=== PATIENT | male | born 1950 | race Caucasian/White ===

== ENCOUNTER 2016-12-28 07:28 | Day surgery (SDC) | payer MEDICARE, BC ==
[~2016-12-28 07:28] MED LIST: Midazolam 1 MG/ML 2 ML SDV ONE; fentaNYL 100 MCG/2 ML SDV ONE
[2016-12-28] MEDS ORDERED: fentaNYL 100 MCG/2 ML SDV IV ONE ×3 (07:29→08:17)
[2016-12-28] MEDS ORDERED: Midazolam 1 MG/ML 2 ML SDV IV ONE ×2 (07:29→08:18)
[2016-12-28] MEDS ORDERED: Lactated Ringers 1,000 ML IV SCH (08:00)
--- NOTE | 2016-12-28 09:35 | OR ---
DATE: 12/28/2016 PREOPERATIVE DIAGNOSIS: Screening colonoscopy. POSTOPERATIVE DIAGNOSIS: Screening colonoscopy. PROCEDURES: Total colonoscopy with snare excision of polyps x4. ANESTHESIA: Conscious sedation with IV Versed and fentanyl. SPECIMEN: Polyp x4. OPERATIVE FINDINGS: This patient has fairly moderate sigmoid diverticulosis and had 4 polyps, one in the cecum, two in the sigmoid, and one in the rectum, these were all taken off by snare. INDICATION FOR PROCEDURE: This 66-year-old male, has not had a prior colonoscopy. PROCEDURE IN DETAIL: After adequate preparation, a colonoscope was inserted into the rectum. This was easily passed all the way to the cecum. Confirmation of the cecum was made by visualization of the ileocecal valve on palpation in the right lower quadrant. The bowel prep was very good. On withdrawal of the scope, there was a small polyp noted right on the ileocecal valve, a snare was encircled around this, clipped off, and retrieved. On withdrawal of the scope in the sigmoid area, there was a polyp in the midsigmoid area and one in the lower, these measured about 4 mm in diameter and were pedunculated, a snare was placed around these and both were clipped off and retrieved. In the rectum, there was a small sessile polyp in the mid rectum, this was also extracted. Other than the polyps in the sigmoid diverticulosis the colonoscopy was normal. RECOMMENDATION: Followup colonoscopy 5 years for polyp screening. [facility] /[id number]
== END 2016-12-28 10:17 | disposition home or self-care (01) ==
LOC: DL.ENDO 07:28
PROVIDERS: ATTEND Surgery
DX: Z12.11 Encounter for screening for malignant neoplasm of colon (principal); D12.0 Benign neoplasm of cecum; D12.5 Benign neoplasm of sigmoid colon; D12.8 Benign neoplasm of rectum; K57.30 Diverticulosis of large intestine without perforation or abscess without bleeding; I82.409 Acute embolism and thrombosis of unspecified deep veins of unspecified lower extremity; Z79.01 Long term (current) use of anticoagulants; Z83.79 Family history of other diseases of the digestive system
CPT/HCPCS: 45385; J2250; J7120; 88305; J3010

== ENCOUNTER 2017-07-31 09:16 | Day surgery (SDC) | payer MEDICARE, BC ==
[2017-07-31] MEDS ORDERED: Midazolam 1 MG/ML 2 ML SDV IV ONE (09:17)
[2017-07-31] MEDS ORDERED: Sodium Chloride 0.9% 10 ML Syringe IV ONE (09:17)
[2017-07-31] MEDS ORDERED: Dexamethasone 4 MG/ML SDV IV ONE (09:17)
[2017-07-31] MEDS ORDERED: Acetaminophen 325 MG Tab PO PRN (09:30)
[2017-07-31] MEDS ORDERED: Phenylephrine 10% Ophth Soln 5 ML Bot EYELF PRN (09:30)
[2017-07-31] MEDS ORDERED: Povidone-Iodine 5% Sterile Ophth Soln 30 ML Bottle EYELF ONE ×2 (09:30→10:21)
[2017-07-31] MEDS ORDERED: Timolol Maleate 0.5% Ophth Soln 5 ML Bottle EYELF ONE (09:30)
[2017-07-31] MEDS ORDERED: Proparacaine 0.5% Ophth Soln 15 ML Bottle EYELF ONE (09:30)
[2017-07-31] MEDS ORDERED: Moxifloxacin 0.5% Ophth Soln 3 ML Bottle EYELF ONE (09:30)
[2017-07-31] MEDS ORDERED: Ondansetron 4 MG/2 ML SDV IVPUSH PRN (09:30)
[2017-07-31] MEDS ORDERED: Cataract Ophth Solution EYELF ONE (09:30)
[2017-07-31] MEDS ORDERED: Phenylephrine 10% Ophth Soln 5 ML Bot EYELF ONE (09:30)
[2017-07-31] MEDS ORDERED: Sodium Chloride 0.9% 10 ML Syringe FLUSH PRN (09:30)
[2017-07-31] MEDS ORDERED: Tetracaine HCl/PF 0.5% 4 ML Bottle EYELF ONE (10:20)
[2017-07-31] MEDS ORDERED: Lidocaine 1% 30 ML SDV INJECT ONE (10:24)
[2017-07-31] MEDS ORDERED: Vancomycin 500 MG SDV EYELF ONE (10:27)
[2017-07-31] MEDS ORDERED: Balanced Salt Solution Ophth Irrig 500 ML Bottle IOCULAR ONE (10:29)
[2017-07-31] MEDS ORDERED: Chondroitin Sulfate/Hyaluronate Sodium Ophth Inj 0.75 ML Syringe EYELF ONE (10:32)
[2017-07-31] MEDS ORDERED: Apraclonidine 0.5% Ophth Soln 5 ML Bot EYELF ONE (10:35)
[2017-07-31] MEDS ORDERED: Dexamethasone/Neomycin/Polymyxin B Ophth Oint 3.5 GM Tube EYELF ONE (10:36)
--- NOTE | 2017-07-31 10:53 | OR ---
DATE: 07/31/2017 PREOPERATIVE DIAGNOSIS: Visually significant mixed cataract, left eye. POSTOPERATIVE DIAGNOSIS: Visually significant mixed cataract, left eye. PROCEDURE: Extracapsular cataract extraction with intraocular lens implant, left eye. ANESTHESIA: Topical/local MAC. COMPLICATIONS: None. INDICATION: Mr. Bajwa was seen in the clinic with complaints of blurred vision. Clinical examination revealed visually significant cataract. Cataract is mixed, both nuclear and cortical. He is unhappy with his vision. I explained options; I offered cataract surgery; and I explained risks preoperatively including the potential for infection, retinal detachment, loss of vision, and need for additional surgery amongst others. We discussed implant options. He has requested surgery with a monofocal implant. OPERATIVE DESCRIPTION: After informed consent was obtained and the risks, benefits, and alternatives were explained, the patient was brought to the operative suite and topical anesthesia was administered. The patient was then prepped and draped in the sterile fashion, and attention was placed on the left eye. A sterile lid speculum was placed into the left eye to allow operative exposure. A full-thickness paracentesis was made in the temporal portion of the operative eye. Preservative-free lidocaine 0.1 mL was injected into the anterior chamber followed by viscoelastic. A full-thickness corneal incision was then made into the anterior chamber. A bent needle cystotome was used to create a small chavo in the anterior capsule. The capsulorrhexis forceps was then used to create a 360-degree curvilinear capsulorrhexis. The nucleus was then removed using a phacoemulsification handpiece, and the remaining cortical material was then removed with irrigation and aspiration handpiece. Following removal of the cortical material, the capsular bag was then inspected and noted to be free of any holes or tears. Viscoelastic was then injected into the capsular bag, and the intraocular lens was inserted into the capsular bag. The viscoelastic material was then removed from both the anterior and posterior chambers and from behind the IOL. The lens and capsular bag were then reinspected. The IOL was well centered and the capsular bag intact. The wound and paracentesis sites were inspected and hydrated with balanced saline solution. Both were found to be self-sealing. The intraocular pressure was assessed digitally and found to be within normal range. A good red reflex was noted at the completion of the procedure. No complications occurred during the operation. At the completion of the procedure, Maxitrol, Voltaren, and Iopidine drops were placed into the operative eye. A sterile eye shield was placed over the operative eye, and the patient was transported to the postoperative recovery area having tolerated the procedure well. Postoperative instructions were given along with a postoperative appointment. The patient was advised to call with any questions or concerns. [facility] /[id number]
== END 2017-07-31 11:29 | disposition home or self-care (01) ==
LOC: DL.SDS 09:16
PROVIDERS: ATTEND Ophthalmology
DX: H26.9 Unspecified cataract (principal); I10 Essential (primary) hypertension; I25.2 Old myocardial infarction; E78.2 Mixed hyperlipidemia; I25.10 Atherosclerotic heart disease of native coronary artery without angina pectoris; Z86.718 Personal history of other venous thrombosis and embolism; Z95.5 Presence of coronary angioplasty implant and graft; Z98.890 Other specified postprocedural states; Z87.891 Personal history of nicotine dependence; Z88.8 Allergy status to other drugs, medicaments and biological substances; Z79.899 Other long term (current) drug therapy; Z79.82 Long term (current) use of aspirin
CPT/HCPCS: 00142; 66984; A9270; C1780; J1100; J2250; J3370; J7050

== ENCOUNTER 2017-08-07 09:25 | Day surgery (SDC) | payer MEDICARE, BC ==
[2017-08-07] MEDS ORDERED: Sodium Chloride 0.9% 10 ML Syringe IV ONE (09:26)
[2017-08-07] MEDS ORDERED: Dexamethasone 4 MG/ML SDV IV ONE (09:26)
[2017-08-07] MEDS ORDERED: Midazolam 1 MG/ML 2 ML SDV IV ONE (09:26)
[2017-08-07] MEDS ORDERED: Phenylephrine 10% Ophth Soln 5 ML Bot EYERT ONE (09:30)
[2017-08-07] MEDS ORDERED: Dilation Soln 1 EA EACH EYERT ONE (09:30)
[2017-08-07] MEDS ORDERED: Sodium Chloride 0.9% 10 ML Syringe FLUSH PRN (09:30)
[2017-08-07] MEDS ORDERED: Timolol Maleate 0.5% Ophth Soln 5 ML Bottle EYERT ONE (09:30)
[2017-08-07] MEDS ORDERED: Acetaminophen 325 MG Tab PO PRN (09:30)
[2017-08-07] MEDS ORDERED: Ondansetron 4 MG/2 ML SDV IVPUSH PRN (09:30)
[2017-08-07] MEDS ORDERED: Povidone-Iodine 5% Sterile Ophth Soln 30 ML Bottle EYERT ONE ×2 (09:30→10:59)
[2017-08-07] MEDS ORDERED: Proparacaine 0.5% Ophth Soln 15 ML Bottle EYERT ONE (09:30)
[2017-08-07] MEDS ORDERED: Moxifloxacin 0.5% Ophth Soln 3 ML Bottle EYERT ONE (09:30)
[2017-08-07] MEDS ORDERED: Acetaminophen/Codeine 300-30 MG Tab PO PRN (09:30)
[2017-08-07] MEDS ORDERED: Tetracaine HCl/PF 0.5% 4 ML Bottle EYERT ONE (10:58)
[2017-08-07] MEDS ORDERED: Lidocaine 1% 30 ML SDV INJECT ONE (11:04)
[2017-08-07] MEDS ORDERED: Vancomycin 500 MG SDV EYERT ONE (11:06)
[2017-08-07] MEDS ORDERED: Balanced Salt Solution Ophth Irrig 500 ML Bottle IOCULAR ONE (11:08)
[2017-08-07] MEDS ORDERED: Chondroitin Sulfate/Hyaluronate Sodium Ophth Inj 0.75 ML Syringe EYERT ONE (11:11)
[2017-08-07] MEDS ORDERED: Dexamethasone/Neomycin/Polymyxin B Ophth Oint 3.5 GM Tube EYERT ONE (11:14)
[2017-08-07] MEDS ORDERED: Apraclonidine 0.5% Ophth Soln 5 ML Bot EYERT ONE (11:14)
--- NOTE | 2017-08-07 12:09 | OR ---
DATE: 08/07/2017 PREOPERATIVE DIAGNOSIS: Visually significant mixed cataract, right eye. POSTOPERATIVE DIAGNOSIS: Visually significant mixed cataract, right eye. PROCEDURE: Extracapsular cataract extraction with intraocular lens implant, right eye. ANESTHESIA: Topical/local MAC. COMPLICATIONS: None. INDICATION: Mr. Bajwa was seen in the clinic with complaints of blurred vision. His clinical examination revealed visually significant cataract with best spectacle corrected vision of 20/70. Cataract is both mixed nuclear and cortical. I explained options to Mr. Bajwa. I offered cataract surgery; and I explained risks including but not limited to infection, retinal detachment, loss of vision, and need for additional surgery amongst others. We discussed implant options. He has requested a monofocal implant. OPERATIVE DESCRIPTION: After informed consent was obtained and the risks, benefits, and alternatives were explained, the patient was brought to the operative suite and topical anesthesia was administered. The patient was then prepped and draped in the sterile fashion and attention was placed on the right eye. A sterile lid speculum was placed into the right eye to allow operative exposure. A full-thickness paracentesis was made in the temporal portion of the operative eye. Preservative-free lidocaine 0.1 mL was injected into the anterior chamber followed by viscoelastic. A full-thickness corneal incision was then made into the anterior chamber. A bent needle cystotome was used to create a small chavo in the anterior capsule. The capsulorrhexis forceps was then used to create a 360-degree curvilinear capsulorrhexis. The nucleus was then removed using a phacoemulsification handpiece, and the remaining cortical material was then removed with irrigation and aspiration handpiece. Following removal of the cortical material, the capsular bag was then inspected and noted to be free of any holes or tears. Viscoelastic was then injected into the capsular bag, and the intraocular lens was inserted into the capsular bag. The viscoelastic material was then removed from both the anterior and posterior chambers and from behind the IOL. The lens and capsular bag were then reinspected. The IOL was well centered and the capsular bag intact. The wound and paracentesis sites were inspected and hydrated with balanced saline solution. Both were found to be self-sealing. The intraocular pressure was assessed digitally and found to be within normal range. A good red reflex was noted at the completion of the procedure. No complications occurred during the operation. At the completion of the procedure, Keeley Mcfadden, and Iopidine drops were placed into the operative eye. A sterile eye shield was placed over the operative eye, and the patient was transported to the postoperative recovery area having tolerated the procedure well. Postoperative instructions were given along with a postoperative appointment. The patient was advised to call with any questions or concerns. [facility] /[id number]
== END 2017-08-07 11:54 | disposition home or self-care (01) ==
LOC: DL.SDS 09:25
PROVIDERS: ATTEND Ophthalmology
DX: H25.811 Combined forms of age-related cataract, right eye (principal); I10 Essential (primary) hypertension; I25.2 Old myocardial infarction; E78.2 Mixed hyperlipidemia; Z87.891 Personal history of nicotine dependence; Z79.82 Long term (current) use of aspirin; Z79.899 Other long term (current) drug therapy; Z95.5 Presence of coronary angioplasty implant and graft
CPT/HCPCS: 00142; 66984; A9270; C1780; J1100; J2250; J3370; J7050

== ENCOUNTER → 2018-09-03 | Outpatient (CLI) | payer MEDICARE, BC | LOC: DL.CLIN 09:30 | DX: H65.90 Unspecified nonsuppurative otitis media, unspecified ear (principal) | CPT/HCPCS: 99212 ==

== ENCOUNTER 2019-09-27 12:28 | Emergency (ER) | payer MEDICARE, BC ==
--- NOTE | 2019-09-27 13:13 | EDM.PDOC ---
ED HPI GENERAL MEDICAL PROBLEM - General Stated Complaint: fever/dizzy Time Seen by Provider: 09/27/19 12:55 Source of Information: Reports: Patient History Limitations: Reports: No Limitations - History of Present Illness INITIAL COMMENTS - FREE TEXT/NARRATIVE: This 69 yo male patient reports to the ED with lower abdominal pain and difficulties urinating. The patient reports he was also feeling feverish and dizzy [place]. 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 The nephrostomy tube was clamped on Saturday. The patient's called the patient's pipeline welder who suggested that the patient place the bag back on the nephrostomy tube to help drain urine. Onset: Today Duration: Constant, Getting Worse Location: Reports: Abdomen (lower abdominal pain and pressure) Quality: Reports: Ache, Pressure Severity: Moderate Improves with: Reports: None Worsens with: Reports: None Context: Reports: Other Associated Symptoms: Reports: No Other Symptoms Lower Uterine Pain Score (Numeric/FACES): 4 - Related Data Allergies Allergy/AdvReac Type Severity Reaction Status Date / Time tamsulosin Allergy Abdominal Verified 09/27/19 12:49 Pain Home Meds: Home Meds Aspirin [Halfprin] 81 mg PO DAILY 12/27/16 [History] Lisinopril 40 mg PO DAILY 12/27/16 [History] [place]-3/DHA/Epa/Fish Oil [Fish Oil 1,000 mg Softgel] 2 cap PO BID 12/27/16 [History] Pravastatin Sodium [Pravastatin (Pravachol)] 1 tab PO BEDTIME 12/27/16 [History] Escitalopram Oxalate [Lexapro] 09/27/19 [History] Past Medical History HEENT History: Reports: Cataract, Hard of Hearing Other HEENT History: WEARS CORRECTIVE LENS, BILAT HEARING AIDES Cardiovascular History: Reports: Blood Clots/VTE/DVT, High Cholesterol, Hyp ertension, ME, Other (See Below) Other Cardiovascular History: VARICOSE VEINS. HX OF PHLEBITIS & THOMBOPHLEBITIS OF SUPERFICIAL VESSELS OF LOWER EXTREMITY Respiratory History: Reports: None Gastrointestinal History: Reports: Colon Polyp Genitourinary History: Reports: None Musculoskeletal History: Reports: Arthritis Neurological History: Reports: None Psychiatric History: Reports: None Endocrine/Metabolic History: Reports: None Hematologic History: Reports: None Immunologic History: Reports: None Oncologic (Cancer) History: Reports: None Dermatologic History: Reports: None - Infectious Disease History Infectious Disease History: Reports: Chicken Pox, Measles, Mumps - Past Surgical History Head Surgeries/Procedures: Reports: None HEENT Surgical History: Reports: None, Cataract Surgery Cardiovascular Surgical History: Reports: Coronary Artery Stent, Varicose, Vascular Surgery Respiratory Surgical History: Reports: None GI Surgical History: Reports: Colonoscopy Male Surgical History: Reports: None Endocrine Surgical History: Reports: None Neurological Surgical History: Reports: None Musculoskeletal Surgical History: Reports: None Oncologic Surgical History: Reports: None Dermatological Surgical History: Reports: None Social & Family History - Caffeine Use Caffeine Use: Reports: Soda Other Caffeine Use: [place] DEW OCCASIONALLY Caffeine Use Comment: 1 can daily ED ROS GENERAL - Review of Systems Review Of Systems: Comprehensive ROS is negative, except as noted in HPI. ED EXAM, GENERAL - Physical Exam Exam: See Below Exam Limited By: No Limitations General Appearance: Alert, WD/WN, Moderate Distress Eye Exam: Bilateral Eye: EOMI, Normal Inspection, PERRL Ears: Normal External Exam, Normal Canal, Hearing Grossly Normal, Normal TMs Nose: Normal Inspection, Normal Mucosa, No Blood Throat/Mouth: Normal Inspection, Normal Lips, Normal Teeth, Normal Gums, Normal Oropharynx, Normal Voice, No Airway Compromise Head: Atraumatic, Normocephalic Neck: Normal Inspection, Supple, Non-Tender, Full Range of Motion Respiratory/Chest: No Respiratory Distress, Lungs Clear, Normal Breath Sounds, No Accessory Muscle Use, Chest Non-Tender Cardiovascular: Normal Peripheral Pulses, Regular Rate, Rhythm, No Edema, No Gallop, No JVD, No Murmur, No Rub GI/Abdominal: Normal Bowel Sounds, Soft, Tender (lower abdomen), Other (nephrostomy tub clamped on left side) (Male) Exam: Deferred Rectal (Males) Exam: Deferred Back Exam: Normal Inspection, Full Range of Motion, NT Extremities: Normal Inspection, Normal Range of Motion, Non-Tender, Normal Capillary Refill, No Pedal Edema Neurological: Alert, Oriented, CN II-XII Intact, Normal Cognition, Normal Gait, Normal Reflexes, No Motor/Sensory Deficits Psychiatric: Normal Affect, Normal Mood Skin Exam: Warm, Dry, Intact, Normal Color, No Rash Lymphatic: No Adenopathy Course - Vital Signs Last Recorded V/S: Last Vital Signs Temp 36.6 C 09/27/19 12:42 Pulse 80 09/27/19 12:42 Resp 17 09/27/19 12:42 BP 146/53 H 09/27/19 12:42 Pulse Ox 95 09/27/19 12:42 - Orders/Labs/Meds Orders: Active Orders 24 hr Category Date Time Status EKG Documentation Completion [RC] STAT Care 09/27/19 12:33 Active CULTURE URINE [RM] Stat Lab 09/27/19 14:07 Received cefTRIAXone [Rocephin] 1 gm Med 09/27/19 14:34 Ordered Sodium Chloride 0.9% [Normal Saline] 50 ml IV ONETIME Medication Orders Ceftriaxone Sodium 1 gm/ (Sodium Chloride) 50 mls @ 100 mls/hr IV ONETIME ONE Stop: 09/27/19 15:03 Last Admin: 09/27/19 14:50 Dose: 100 mls/hr Documented by: ODETTE Labs: Laboratory Tests 09/27/19 09/27/19 09/27/19 Range/Units 12:59 12:59 12:59 WBC 16.4 H (5.0-10.0) 10^3/uL RBC 3.76 L (4.6-6.2) 10^6/uL Hgb 12.6 L (14.0-18.0) g/dL Hct 36.9 L (40.0-54.0) % MCV 98.1 (80-100) fL MCH 33.5 (27.0-34.0) pg MCHC 34.1 (33.0-35.0) g/dL Plt Count 164 (150-450) 10^3/uL Neut % (Auto) 88.3 H (42.2-75.2) % Lymph % (Auto) 5.0 L (20.5-50.1) % [place] % (Auto) 6.6 (2-8) % Eos % (Auto) 0.0 L (1.0-3.0) % Baso % (Auto) 0.1 (0.0-1.0) % Sodium 139 (136-145) mmol/L Potassium 3.9 (3.5-5.1) mmol/L Chloride 101 (98-107) mmol/L Carbon Dioxide 27 (21-32) mmol/L Anion Gap 14.9 H (7-13) mEq/L BUN 20 H (7-18) mg/dL Creatinine 1.30 (0.70-1.30) mg/dL Est Cr Clr Drug Dosing 58.86 mL/min Estimated GFR (MDRD) 55 BUN/Creatinine Ratio 15.4 (No establ ref range) Glucose 130 H (74-99) mg/dL Lactic Acid 1.3 (0.4-2.0) mmol/L Calcium 8.9 (8.5-10.1) mg/dL Total Bilirubin 1.5 H (0.2-1.0) mg/dL AST 13 L (15-37) U/L ALT 20 (16-63) U/L Alkaline Phosphatase 38 L (46-116) U/L Troponin I < 0.017 (0.000-0.056) ng/mL Total Protein 7.8 (6.4-8.2) g/dL Albumin 3.8 (3.4-5.0) g/dL Globulin 4.0 Albumin/Globulin Ratio 0.9 Urine Color (YELLOW) Urine Appearance (CLEAR) Urine pH (5.0-9.0) Ur Specific [place] (1.005-1.030) Urine Protein (NEGATIVE) Urine Glucose (UA) (NEGATIVE) Urine Ketones (NEGATIVE) Urine Occult Blood (NEGATIVE) Urine Nitrite (NEGATIVE) Urine Bilirubin (NEGATIVE) Urine Urobilinogen (0.2-1.0) mg/dL Ur Leukocyte Esterase (NEGATIVE) Urine RBC /HPF Urine WBC (0-5/HPF) /HPF Ur Epithelial Cells (NOT SEEN) /HPF Urine Bacteria (0-FEW/HPF) /HPF /03/06 Range/Units 14:07 WBC (5.0-10.0) 10^3/uL RBC (4.6-6.2) 10^6/uL Hgb (14.0-18.0) g/dL Hct (40.0-54.0) % MCV (80-100) fL MCH (27.0-34.0) pg MCHC (33.0-35.0) g/dL Plt Count (150-450) 10^3/uL Neut % (Auto) (42.2-75.2) % Lymph % (Auto) (20.5-50.1) % [place] % (Auto) (2-8) % Eos % (Auto) (1.0-3.0) % Baso % (Auto) (0.0-1.0) % Sodium (136-145) mmol/L Potassium (3.5-5.1) mmol/L Chloride (98-107) mmol/L Carbon Dioxide (21-32) mmol/L Anion Gap (7-13) mEq/L BUN (7-18) mg/dL Creatinine (0.70-1.30) mg/dL Est Cr Clr Drug Dosing mL/min Estimated GFR (MDRD) BUN/Creatinine Ratio (No establ ref range) Glucose (74-99) mg/dL Lactic Acid (0.4-2.0) mmol/L Calcium (8.5-10.1) mg/dL Total Bilirubin (0.2-1.0) mg/dL AST (15-37) U/L ALT (16-63) U/L Alkaline Phosphatase (46-116) U/L Troponin I (0.000-0.056) ng/mL Total Protein (6.4-8.2) g/dL Albumin (3.4-5.0) g/dL Globulin Albumin/Globulin Ratio Urine Color Yellow (YELLOW) Urine Appearance Cloudy (CLEAR) Urine pH 6.0 (5.0-9.0) Ur Specific [place] 1.025 (1.005-1.030) Urine Protein >=300 H (NEGATIVE) Urine Glucose (UA) Negative (NEGATIVE) Urine Ketones Trace H (NEGATIVE) Urine Occult Blood Large H (NEGATIVE) Urine Nitrite Positive H (NEGATIVE) Urine Bilirubin Small H (NEGATIVE) Urine Urobilinogen 4.0 H (0.2-1.0) mg/dL Ur Leukocyte Esterase Large H (NEGATIVE) Urine RBC 50-75 H /HPF Urine WBC 50-75 H (0-5/HPF) /HPF Ur Epithelial Cells Not seen (NOT SEEN) /HPF Urine Bacteria Many H (0-FEW/HPF) /HPF Meds: Medications Generic Name Dose Route Start Last Admin Trade Name Freq PRN Reason Stop Dose Admin Ceftriaxone Sodium 1 gm/ 50 mls @ 100 mls/hr 09/27/19 14:34 09/27/19 14:50 Sodium Chloride IV 09/27/19 15:03 100 mls/hr ONETIME ONE Administration Departure - Departure Time of Disposition: 14:56 Disposition: Home, Self-Care 01 Condition: Fair Clinical Impression: UTI, Urinary tract infectious disease - Discharge Information *PRESCRIPTION DRUG MONITORING PROGRAM REVIEWED*: Not Applicable *COPY OF PRESCRIPTION DRUG MONITORING REPORT IN PATIENT LEOPOLDO: Not Applicable Instructions: Urinary Tract Infection, Adult, [id number] Forms: ED Department Discharge Care Plan Goals: The patient was advised of the examination and lab results during the visit. The patient was given an IV dose of Rocephin while in the ED. The patient was discharged with a script for Keflex (500 mg) #21 to take 1 by mouth 3 times per day for 7 days. The patient's nephrostomy tube was reconnected with a bag. If the patient has any additional symptoms or concerns, the patient should either return to the emergency department, visit with his pipeline welder or visit his primary care facility. Sepsis Event Note (ED) - Evaluation Sepsis Screening Result: No Definite Risk - Focused Exam Vital Signs: Vital Signs Temp Pulse Resp BP Pulse Ox 09/27/19 12:42 36.6 C 80 17 146/53 H 95 - My Orders Last 24 Hours: My Active Orders 09/27/19 12:33 EKG Documentation Completion [RC] STAT 09/27/19 14:07 CULTURE URINE [RM] Stat 09/27/19 14:34 cefTRIAXone [Rocephin] 1 gm Sodium Chloride 0.9% [Normal Saline] 50 ml IV ONETIME - Assessment/Plan Last 24 Hours: My Active Orders 09/27/19 12:33 EKG Documentation Completion [RC] STAT 09/27/19 14:07 CULTURE URINE [RM] Stat 09/27/19 14:34 cefTRIAXone [Rocephin] 1 gm Sodium Chloride 0.9% [Normal Saline] 50 ml IV ONETIME
--- NOTE | 2019-09-27 13:22 | CR ---
PROCEDURE INFORMATION: Exam: XR Chest, 1 View Exam date and time: 09/27/2019 1:03 PM Age: 69 years old Clinical indication: Other: Dizziness TECHNIQUE: Imaging protocol: XR of the chest Views: 1 view. COMPARISON: CT Chest w Cont 10/30/2016 8:38 AM FINDINGS: Lungs: Unremarkable. No consolidation. Pleural space: Unremarkable. No pleural effusion. No pneumothorax. Heart/Mediastinum: Unremarkable. No cardiomegaly. Bones/joints: Unremarkable. IMPRESSION: No acute findings.
[2019-09-27 13:49] LABS: ANION GAP 14.9 mEq/L (7-13); CHLORIDE,CL 101 mmol/L (98-107); SODIUM,NA 139 mmol/L (136-145)
[2019-09-27] MEDS ORDERED: cefTRIAXone 1 GM in Sodium Chloride 0.9% 50 ML IV ONE (14:34)
== END 2019-09-27 15:34 | disposition home or self-care (01) ==
LOC: DL.ED 12:28
DX: N39.0 Urinary tract infection, site not specified (principal); I10 Essential (primary) hypertension; E78.00 Pure hypercholesterolemia, unspecified; I25.2 Old myocardial infarction; M19.90 Unspecified osteoarthritis, unspecified site; Z79.82 Long term (current) use of aspirin; Z79.899 Other long term (current) drug therapy; Z88.8 Allergy status to other drugs, medicaments and biological substances
CPT/HCPCS: 36415; 51798; 71045; 80053; 81001; 83605; 84484; 85025; 87040; 87086; 93005; 96365; 99284; J0696; J7050

== ENCOUNTER 2019-11-23 13:17 | Emergency (ER) | payer MEDICARE, BC ==
[2019-11-23] MEDS ORDERED: Ciprofloxacin 500 MG Tab PO ONE ×2 (13:18→13:51)
[2019-11-23] MEDS ORDERED: cefTRIAXone 1 GM, Lidocaine 1% 2.1 ML IM ONE ×2 (13:52)
--- NOTE | 2019-11-23 13:57 | EDM.PDOC ---
Scribed by Miriam Bach 11/23/19 1341 for Souleymane Meza MD ED HPI GENERAL MEDICAL PROBLEM - General Chief Complaint: Genitourinary Problem Stated Complaint: POSSIBLE UTI Time Seen by Provider: 11/23/19 13:30 Source of Information: Reports: Patient, RN, RN Notes Reviewed History Limitations: Reports: No Limitations - History of Present Illness INITIAL COMMENTS - FREE TEXT/NARRATIVE: Patient presents to the ED by POV with complaint of possible UTI. Pt c/o dysuria with frequency and urgency. Previously had nephrostomy tube. 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 Onset: Today Duration: Getting Worse Quality: Reports: Ache Severity: Moderate Improves with: Reports: None Worsens with: Reports: None Associated Symptoms: Reports: No Other Symptoms Bladder Pain Score (Numeric/FACES): 5 - Related Data Allergies Allergy/AdvReac Type Severity Reaction Status Date / Time tamsulosin Allergy Abdominal Verified 11/23/19 13:33 Pain Home Meds: Home Meds Aspirin [Halfprin] 81 mg PO DAILY 12/27/16 [History] Lisinopril 40 mg PO DAILY 12/27/16 [History] [place]-3/DHA/Epa/Fish Oil [Fish Oil 1,000 mg Softgel] 1,000 mg PO BID 12/27/16 [History] Pravastatin Sodium [Pravastatin (Pravachol)] 40 mg PO BEDTIME 12/27/16 [History] Abiraterone Acetate [Zytiga] 1,000 mg PO BEDTIME 11/23/19 [History] Calcium Carbonate/Vitamin D3 [Calcium 500 + Vit D 400] 1 tab PO BID 11/23/19 [History] Cannabidiol (Cbd) Extract [Cannabis (Medical)] 1 tab PO ASDIRECTED PRN 11/23/19 [History] Furosemide [Lasix] 20 mg PO DAILY 11/23/19 [History] Hydrocodone/Acetaminophen [Hydrocodon-Acetaminoph 7.5-325] 1 each PO Q4H PRN 11/23/19 [History] Ibuprofen 400 mg PO BID PRN 11/23/19 [History] Levothyroxine Sodium [Synthroid] 25 mcg PO DAILY 11/23/19 [History] Nitroglycerin [Nitrostat] 0.4 mg SL ASDIRECTED PRN 11/23/19 [History] Vit A/Vit C/Vit E/Zinc/Copper [Preservision Areds Softgel] 1 each PO DAILY 11/23/19 [History] polyethylene glycoL 3350 [MiraLAX] 17 gm PO DAILY 11/23/19 [History] predniSONE [Prednisone] 5 mg PO BID 11/23/19 [History] Past Medical History HEENT History: Reports: Cataract, Hard of Hearing Other HEENT History: WEARS CORRECTIVE LENS, BILAT HEARING AIDES Cardiovascular History: Reports: Blood Clots/VTE/DVT, High Cholesterol, Hypertension, DC, Other (See Below) Other Cardiovascular History: VARICOSE VEINS. HX OF PHLEBITIS & THOMBOPHLEBITIS OF SUPERFICIAL VESSELS OF LOWER EXTREMITY Respiratory History: Reports: None Gastrointestinal History: Reports: Colon Polyp Genitourinary History: Reports: None Other Genitourinary History: Nephrostomy Tube Musculoskeletal History: Reports: Arthritis Neurological History: Reports: None Psychiatric History: Reports: None Endocrine/Metabolic History: Reports: None Hematologic History: Reports: None Immunologic History: Reports: None Oncologic (Cancer) History: Reports: None Dermatologic History: Reports: None - Infectious Disease History Infectious Disease History: Reports: Chicken Pox, Measles, Mumps - Past Surgical History Head Surgeries/Procedures: Reports: None HEENT Surgical History: Reports: None, Cataract Surgery Cardiovascular Surgical History: Reports: Coronary Artery Stent, Varicose, Vascular Surgery Respiratory Surgical History: Reports: None GI Surgical History: Reports: Colonoscopy Male Surgical History: Reports: None Endocrine Surgical History: Reports: None Neurological Surgical History: Reports: None Musculoskeletal Surgical History: Reports: None Oncologic Surgical History: Reports: None Dermatological Surgical History: Reports: None Social & Family History - Caffeine Use Caffeine Use: Reports: Soda Other Caffeine Use: [place] DEW OCCASIONALLY Caffeine Use Comment: 1 can daily - Living Situation & Occupation Living situation: Reports: , with Spouse ED ROS GENERAL - Review of Systems Review Of Systems: Comprehensive ROS is negative, except as noted in HPI. ED EXAM, RENAL/ - Physical Exam Exam: See Below Exam Limited By: No Limitations General Appearance: Alert, WD/WN, No Apparent Distress Respiratory/Chest: No Respiratory Distress, Lungs Clear, Normal Breath Sounds, No Accessory Muscle Use, Chest Non-Tender Cardiovascular: Regular Rate, Rhythm GI/Abdominal: Normal Bowel Sounds, Soft, Tender (mild suprapubic tenderness) (Male) Exam: Deferred Back Exam: No: CVA Tenderness (L), CVA Tenderness (R) Neurological: Alert, Oriented, No Motor/Sensory Deficits Psychiatric: Normal Affect, Normal Mood Skin Exam: Warm, Dry, Normal Color Course - Vital Signs Last Recorded V/S: Last Vital Signs Temp 96.8 F L 11/23/19 13:36 Pulse 55 L 11/23/19 13:36 Resp 18 11/23/19 13:36 BP 138/68 11/23/19 13:36 Pulse Ox 97 11/23/19 13:36 - Orders/Labs/Meds Orders: Active Orders 24 hr Category Date Time Status CULTURE URINE [RM] Stat Lab 11/23/19 13:20 Received UA W/MICROSCOPIC [URIN] Stat Lab 11/23/19 13:20 Results Labs: Laboratory Tests 11/23/19 Range/Units 13:20 Urine Color Red (YELLOW) Urine Appearance Cloudy (CLEAR) Urine pH 6.5 (5.0-9.0) Ur Specific [place] 1.025 (1.005-1.030) Urine Protein 100 H (NEGATIVE) Urine Glucose (UA) Negative (NEGATIVE) Urine Ketones Negative (NEGATIVE) Urine Occult Blood Large H (NEGATIVE) Urine Nitrite Positive H (NEGATIVE) Urine Bilirubin Small H (NEGATIVE) Urine Urobilinogen 0.2 (0.2-1.0) mg/dL Ur Leukocyte Esterase Large H (NEGATIVE) Meds: Medications Discontinued Medications Generic Name Dose Route Start Last Admin Trade Name Freq PRN Reason Stop Dose Admin Ciprofloxacin 500 mg 11/23/19 13:51 Ciprofloxacin Hcl PO 11/23/19 13:52 ONETIME ONE Ceftriaxone Sodium 1 gm/ 0 gm 11/23/19 13:52 Lidocaine HCl 2.1 ml IM 11/23/19 13:53 ONETIME ONE Departure - Departure Time of Disposition: 13:54 Disposition: Home, Self-Care 01 Condition: Good Clinical Impression: Urinary tract infection Qualifiers: Urinary tract infection type: acute cystitis Hematuria presence: with hematuria Qualified Code(s): N30.01 - Acute cystitis with hematuria - Discharge Information *PRESCRIPTION DRUG MONITORING PROGRAM REVIEWED*: Not Applicable *COPY OF PRESCRIPTION DRUG MONITORING REPORT IN PATIENT LEOPOLDO: Not Applicable Instructions: Urinary Tract Infection, Adult, [id number] Forms: ED Department Discharge Additional Instructions: Rx: Cipro 500mg Follow up in clinic for urine recheck in 5 to 7 days. Sepsis Event Note (ED) - Focused Exam Vital Signs: Vital Signs Temp Pulse Resp BP Pulse Ox 11/23/19 13:36 96.8 F L 55 L 18 138/68 97 - My Orders Last 24 Hours: My Active Orders 11/23/19 13:20 CULTURE URINE [RM] Stat UA W/MICROSCOPIC [URIN] Stat - Assessment/Plan Last 24 Hours: My Active Orders 11/23/19 13:20 CULTURE URINE [RM] Stat UA W/MICROSCOPIC [URIN] Stat I have read and agree with the documentation that has been completed regarding this visit. By signing this record, I attest that the documentation was completed in my physical presence and is an accurate record of the encounter.
[2019-11-23] MEDS ORDERED: Ciprofloxacin 500 MG Tab ONE (14:00)
== END 2019-11-23 14:12 | disposition home or self-care (01) ==
LOC: DL.ED 13:17
DX: N30.01 Acute cystitis with hematuria (principal); I10 Essential (primary) hypertension; I25.2 Old myocardial infarction; M19.90 Unspecified osteoarthritis, unspecified site; Z88.8 Allergy status to other drugs, medicaments and biological substances; Z79.82 Long term (current) use of aspirin; Z79.899 Other long term (current) drug therapy
CPT/HCPCS: 81001; 87086; 87088; 87186; 96372; 99283; A9270-GY; J0696; J2001

== ENCOUNTER 2020-06-26 14:24 | Emergency (ER) | payer MEDICARE, BC ==
[2020-06-26] MEDS ORDERED: Sodium Chloride 0.9% 1,000 ML IV ONE (14:50)
[2020-06-26] MEDS ORDERED: Sodium Chloride 0.9% 10 ML Syringe FLUSH PRN (14:50)
[2020-06-26] MEDS ORDERED: Ondansetron 4 MG/2 ML SDV IV ONE ×2 (14:50→16:21)
[2020-06-26 15:32] LABS: PTT,PARTIAL THROMBOPLSTIN TIME 21.3 SEC (22.0-34.0)
[2020-06-26 15:34] LABS: ANION GAP 13.5 mEq/L (7-13); CHLORIDE,CL 103 mmol/L (98-107); SODIUM,NA 141 mmol/L (136-145)
[2020-06-26] MEDS ORDERED: Iopamidol 612 MG/ML 100 ML Bottle IVPUSH ONE (15:46)
[2020-06-26] MEDS ORDERED: HYDROmorphone 1 MG/ML Syringe IVPUSH ONE (16:21)
--- NOTE | 2020-06-26 16:52 | CT ---
PROCEDURE INFORMATION: Exam: CT Abdomen And Pelvis With Contrast Exam date and time: 06/26/2020 4:14 PM Age: 69 years old Clinical indication: Other: HX diverticulosos, and HX abd/pelvic radiation tx, bladder CA; Additional info: Abdominal pain, diarrhea w/blood and mucus TECHNIQUE: Imaging protocol: Computed tomography of the abdomen and pelvis with contrast. Radiation optimization: All CT scans at this facility use at least one of these dose optimization techniques: automated exposure control; mA and/or kV adjustment per patient size (includes targeted exams where dose is matched to clinical indication); or iterative reconstruction. Contrast material: [id number]; Contrast volume: 100 ml; Contrast route: INTRAVENOUS (IV); COMPARISON: CT Abdomen Pelvis w wo Cont 08/27/2017 8:40 AM FINDINGS: Heart: Fatty deposition within left ventricular wall. This can be indicative of chronic subendocardial myocardial infarct. Liver: The liver is normal in architecture, without suspicious abnormality. Gallbladder and bile ducts: No calcified gallstones. No ductal dilation. Pancreas: The pancreatic parenchyma is normal in bulk and sharply marginated. Duct is not dilated. No calcifications, masses, or abnormal fluid collections. Spleen: Spleen is normal in size. No mass or fluid collection. Adrenal glands: There are no adrenal masses. Kidneys and ureters: Left ureteral stent in place. There is left hydroureteronephrosis. No urinary tract calculi. Essentially normal right kidney. Normal parenchymal bulk bilaterally. No solid masses. Stomach and bowel: No significant abnormalities of the stomach. There are no dilated or thickened small bowel loops. Gas and stool are seen in the colon. The large intestine distal to the splenic flexure is predominantly decompressed and its wall may be edematous over this long segment, inclusive of the sigmoid colon.There are multiple colonic diverticula, concentrated primarily distally. There are multiple colonic diverticula, concentrated primarily distally. Appendix: The appendix is seen. It is normal. Intraperitoneal space: No pneumoperitoneum, ascites, mass or stranding of fat. Vasculature: There are atherosclerotic calcifications inclusive of the coronary arteries. There is atherosclerotic calcification of the aorto-iliac tree. There is no abdominal aortic aneurysm. 3.3 cm infrarenal abdominal aortic aneurysm. Lymph nodes: No enlarged lymph nodes. Urinary bladder: Eccentric bladder wall thickening consistent with history of bladder cancer. Reproductive: Prostate gland is normal in size. The seminal vesicles are unremarkable. Bones/joints: Age appropriate spondylosis. No acute fracture. No dislocation. Multifocal osteosclerotic nodules of the axial skeleton consistent with metastases from a bladder cancer. Soft tissues: There is a preponderance of fat in the left inguinal canal. IMPRESSION: 1. Suspect Colitis. Possible etiologies to the colitis include infectious, pseudomembranous, and inflammatory bowel disease. New finding. 2. Fatty deposition within left ventricular wall. This can be indicative of chronic subendocardial myocardial infarct. Present previously as well, not as much included in the field of view is on today's study. 3. 3.3 cm infrarenal abdominal aortic aneurysm. 4. Multifocal osteosclerotic nodules of the axial skeleton consistent with metastases from a bladder cancer. Not present previously.
[2020-06-26] MEDS ORDERED: methylPREDNISolone Sodium Succinate 125 MG/2 ML SDV IVPUSH ONE (17:48)
[2020-06-26] MEDS ORDERED: Atropine/Diphenoxylate 0.025-2.5 MG Tab PO ONE (18:02)
--- NOTE | 2020-06-26 18:03 | EDM.PDOC ---
"Scribed by Miriam Bach 06/26/20 2508 for Renetta Meza MD ED HPI GENERAL MEDICAL PROBLEM - General Chief Complaint: Abdominal Pain Stated Complaint: STOMACH CRAPS/BLOODY STOOL Time Seen by Provider: 06/26/20 14:34 Source of Information: Reports: Patient, RN, RN Notes Reviewed History Limitations: Reports: No Limitations - History of Present Illness INITIAL COMMENTS - FREE TEXT/NARRATIVE: Patient presents to ED by POV stating that yesterday he started having abdominal cramps and nausea. He developed diarrhea shortly after the onset of the abdominal pain, and by late last evening he had one bowel movement that was bloody. Today he continues with pain on the far left and right sides of his abdomen and with diarrhea that contains mucus and occasionally streaks of blood, or blood tinged mucus. He called his oncologist who recommended watching the symptoms but if they get worse to come to the ER. He denies fever or vomiting, radiating pain, or urinary symptoms. Onset Date: 06/25/20 Duration: Constant, Getting Worse Location: Reports: Abdomen Quality: Reports: Ache, Other (Cramping) Severity: Severe Improves with: Reports: None Worsens with: Reports: None Associated Symptoms: Reports: No Other Symptoms Abdomen Pain Score (Numeric/FACES): 10 - Related Data Allergies Allergy/AdvReac Type Severity Reaction Status Date / Time tamsulosin Allergy Abdominal Verified 11/23/19 13:33 Pain Home Meds: Home Meds Aspirin [Halfprin] 81 mg PO DAILY 12/27/16 [History] Lisinopril 40 mg PO DAILY 12/27/16 [History] [place]-3/DHA/Epa/Fish Oil [Fish Oil 1,000 mg Softgel] 1,000 mg PO BID 12/27/16 [History] Pravastatin Sodium [Pravastatin (Pravachol)] 40 mg PO BEDTIME 12/27/16 [History] Abiraterone Acetate [Zytiga] 1,000 mg PO BEDTIME 11/23/19 [History] Calcium Carbonate/Vitamin D3 [Calcium 500 + Vit D 400] 1 tab PO BID 11/23/19 [History] Cannabidiol (Cbd) Extract [Cannabis (Medical)] 1 tab PO ASDIRECTED PRN 11/23/19 [History] Furosemide [Lasix] 20 mg PO DAILY 11/23/19 [History] Hydrocodone/Acetaminophen [Hydrocodon-Acetaminoph 7.5-325] 1 each PO Q4H PRN 11/23/19 [History] Ibuprofen 400 mg PO BID PRN 11/23/19 [History] Levothyroxine Sodium [Synthroid] 25 mcg PO DAILY 11/23/19 [History] Nitroglycerin [Nitrostat] 0.4 mg SL ASDIRECTED PRN 11/23/19 [History] Vit A/Vit C/Vit E/Zinc/Copper [Preservision Areds Softgel] 1 each PO DAILY 11/23/19 [History] polyethylene glycoL 3350 [MiraLAX] 17 gm PO DAILY 11/23/19 [History] predniSONE [Prednisone] 5 mg PO BID 11/23/19 [History] Past Medical History HEENT History: Reports: Cataract, Hard of Hearing Other HEENT History: WEARS CORRECTIVE LENS, BILAT HEARING AIDES Cardiovascular History: Reports: Blood Clots/VTE/DVT, High Cholesterol, Hypertension, [place], Other (See Below) Other Cardiovascular History: VARICOSE VEINS. HX OF PHLEBITIS & THOMBOPHLEBITIS OF SUPERFICIAL VESSELS OF LOWER EXTREMITY Respiratory History: Reports: None Gastrointestinal History: Reports: Colon Polyp Genitourinary History: Reports: None Other Genitourinary History: Nephrostomy Tube Musculoskeletal History: Reports: Arthritis Neurological History: Reports: None Psychiatric History: Reports: None Endocrine/Metabolic History: Reports: None Hematologic History: Reports: None Immunologic History: Reports: None Oncologic (Cancer) History: Reports: None Dermatologic History: Reports: None - Infectious Disease History Infectious Disease History: Reports: Chicken Pox, Measles, Mumps - Past Surgical History Head Surgeries/Procedures: Reports: None HEENT Surgical History: Reports: None, Cataract Surgery Cardiovascular Surgical History: Reports: Coronary Artery Stent, Varicose, Vascular Surgery Respiratory Surgical History: Reports: None GI Surgical History: Reports: Colonoscopy Male Surgical History: Reports: None Endocrine Surgical History: Reports: None Neurological Surgical History: Reports: None Musculoskeletal Surgical History: Reports: None Oncologic Surgical History: Reports: None Dermatological Surgical History: Reports: None Social & Family History - Caffeine Use Caffeine Use: Reports: Soda Other Caffeine Use: [place] DEW OCCASIONALLY Caffeine Use Comment: 1 can daily - Living Situation & Occupation Living situation: Reports: , with Spouse ED ROS GENERAL - Review of Systems Review Of Systems: Comprehensive ROS is negative, except as noted in HPI. ED EXAM, GI/ABD - Physical Exam Exam: See Below Exam Limited By: No Limitations General Appearance: Alert, WD/WN, No Apparent Distress, Obese Eyes: Bilateral: Normal Appearance Nose: Normal Inspection, Normal Mucosa, No Blood Throat/Mouth: Normal Inspection, Normal Lips, Normal Voice, No Airway Compromise, Other (Moist oral mucosa without lesions.) Head: Atraumatic, Normocephalic Neck: Normal Inspection, Supple, Non-Tender, Full Range of Motion Respiratory/Chest: No Respiratory Distress, Lungs Clear, Normal Breath Sounds, No Accessory Muscle Use, Chest Non-Tender Cardiovascular: Regular Rate, Rhythm, No Edema GI/Abdominal Exam: Normal Bowel Sounds, Soft, No Distention, Pelvis Stable, Tender (RLQ, RUQ, LUQ, and LLQ.). No: Guarding, Rigid, Rebound (Male) Exam: Deferred Rectal (Males) Exam: Deferred Back Exam: Normal Inspection. No: CVA Tenderness (L), CVA Tenderness (R) Extremities: Normal Inspection Neurological: Alert, Oriented, CN II-XII Intact, Normal Cognition, Normal Gait, No Motor/Sensory Deficits Psychiatric: Normal Affect, Normal Mood Skin Exam: Warm, Dry, Intact, Normal Color, No Rash Course - Vital Signs Last Recorded V/S: Last Vital Signs Temp 97.5 F 06/26/20 14:46 Pulse 81 06/26/20 14:46 Resp 18 06/26/20 14:46 BP 136/57 L 06/26/20 14:46 Pulse Ox 97 06/26/20 14:46 - Orders/Labs/Meds Orders: Active Orders 24 hr Category Date Time Status Peripheral IV Care [RC] . DIRECTED Care 06/26/20 14:51 Active CULTURE BLOOD [BC] Stat Lab 06/26/20 15:05 Received CULTURE BLOOD [BC] Stat Lab 06/26/20 15:07 Received UA RFX NU AND CULT IF INDIC [URIN] Stat Lab 06/26/20 14:50 Ordered Atropine/Diphenoxylate [Lomotil 0.025-2.5 MG] Med 06/26/20 18:02 Once 1 tab PO ONETIME ONE Sodium Chloride 0.9% [Saline Flush] Med 06/26/20 14:50 Active 10 ml FLUSH ASDIRECTED PRN Blood Culture x2 Reflex Set [OM.PC] Stat Oth 06/26/20 14:50 Ordered Peripheral IV Insertion Adult [OM.PC] Stat Oth 06/26/20 14:50 Ordered Medication Orders Sodium Chloride (Sodium Chloride 0.9% 10 Ml Syringe) 10 ml FLUSH ASDIRECTED PRN PRN Reason: Keep Vein Open Last Admin: 06/26/20 15:11 Dose: 10 ml Documented by: LES Labs: Laboratory Tests 06/26/20 06/26/20 06/26/20 Range/Units 15:05 15:05 15:05 WBC 12.3 H (5.0-10.0) 10^3/uL RBC 3.34 L (4.6-6.2) 10^6/uL Hgb 11.1 L (14.0-18.0) g/dL Hct 34.2 L (40.0-54.0) % MCV 102.4 H (80-100) fL MCH 33.2 (27.0-34.0) pg MCHC 32.5 L (33.0-35.0) g/dL Plt Count 194 (150-450) 10^3/uL Neut % (Auto) 84.1 H (42.2-75.2) % Lymph % (Auto) 8.8 L (20.5-50.1) % Meriwether % (Auto) 5.9 (2-8) % Eos % (Auto) 1.0 (1.0-3.0) % Baso % (Auto) 0.2 (0.0-1.0) % PT 10.3 (9.0-12.0) SEC INR 1.0 (0.9-1.2) APTT 21.3 L (22.0-34.0) SEC Sodium 141 (136-145) mmol/L Potassium 3.5 (3.5-5.1) mmol/L Chloride 103 (98-107) mmol/L Carbon Dioxide 28 (21-32) mmol/L Anion Gap 13.5 H (7-13) mEq/L BUN 14 (7-18) mg/dL Creatinine 0.83 (0.70-1.30) mg/dL Est Cr Clr Drug Dosing 92.20 mL/min Estimated GFR (MDRD) > 60 BUN/Creatinine Ratio 16.9 (No establ ref range) Glucose 116 H (70-99) mg/dL Lactic Acid (0.4-2.0) mmol/L Calcium 8.2 L (8.5-10.1) mg/dL Total Bilirubin 0.6 (0.2-1.0) mg/dL AST 8 L (15-37) U/L ALT 18 (16-63) U/L Alkaline Phosphatase 38 L (46-116) U/L C-Reactive Protein 6.9 H (0.0-0.9) mg/dL Total Protein 6.2 L (6.4-8.2) g/dL Albumin 3.1 L (3.4-5.0) g/dL Globulin 3.1 Albumin/Globulin Ratio 1.00 Amylase 24 L (25-115) U/L Lipase 56 L (73-393) U/L 06/26/20 Range/Units 15:05 WBC (5.0-10.0) 10^3/uL RBC (4.6-6.2) 10^6/uL Hgb (14.0-18.0) g/dL Hct (40.0-54.0) % MCV (80-100) fL MCH (27.0-34.0) pg MCHC (33.0-35.0) g/dL Plt Count (150-450) 10^3/uL Neut % (Auto) (42.2-75.2) % Lymph % (Auto) (20.5-50.1) % [place]iwether % (Auto) (2-8) % Eos % (Auto) (1.0-3.0) % Baso % (Auto) (0.0-1.0) % PT (9.0-12.0) SEC INR (0.9-1.2) APTT (22.0-34.0) SEC Sodium (136-145) mmol/L Potassium (3.5-5.1) mmol/L Chloride (98-107) mmol/L Carbon Dioxide (21-32) mmol/L Anion Gap (7-13) mEq/L BUN (7-18) mg/dL Creatinine (0.70-1.30) mg/dL Est Cr Clr Drug Dosing mL/min Estimated GFR (MDRD) BUN/Creatinine Ratio (No establ ref range) Glucose (70-99) mg/dL Lactic Acid 0.7 (0.4-2.0) mmol/L Calcium (8.5-10.1) mg/dL Total Bilirubin (0.2-1.0) mg/dL AST (15-37) U/L ALT (16-63) U/L Alkaline Phosphatase (46-116) U/L C-Reactive Protein (0.0-0.9) mg/dL Total Protein (6.4-8.2) g/dL Albumin (3.4-5.0) g/dL Globulin Albumin/Globulin Ratio Amylase (25-115) U/L Lipase (73-393) U/L Meds: Medications Generic Name Dose Route Start Last Admin Trade Name Freq PRN Reason Stop Dose Admin Sodium Chloride 10 ml 06/26/20 14:50 06/26/20 15:11 Sodium Chloride 0.9% 10 Ml Syringe FLUSH 10 ml ASDIRECTED PRN Administration Keep Vein Open Discontinued Medications Generic Name Dose Route Start Last Admin Trade Name Freq PRN Reason Stop Dose Admin Hydromorphone HCl 1 mg 06/26/20 16:21 06/26/20 16:46 Hydromorphone 1 Mg/Ml Syringe IVPUSH 06/26/20 16:22 1 mg ONETIME ONE Administration Sodium Chloride 1,000 mls @ 999 mls/hr 06/26/20 14:50 06/26/20 15:11 Normal Saline IV 06/26/20 15:50 999 mls/hr .BOLUS ONE Administration Iopamidol 100 ml 06/26/20 15:46 06/26/20 15:55 Iopamidol 612 Mg/Ml 100 Ml Bottle IVPUSH 06/26/20 15:47 100 ml ONETIME ONE Administration Methylprednisolone Sodium Succinate 125 mg 06/26/20 17:48 06/26/20 17:53 Methylprednisolone Sodium Succinate 125 Mg/2 Ml Sdv IVPUSH 06/26/20 17:49 125 mg ONETIME ONE Administration Ondansetron HCl 4 mg 06/26/20 14:50 06/26/20 15:11 Ondansetron 4 Mg/2 Ml Sdv IV 06/26/20 14:51 4 mg ONETIME ONE Administration Ondansetron HCl 4 mg 06/26/20 16:21 06/26/20 16:46 Ondansetron 4 Mg/2 Ml Sdv IV 06/26/20 16:22 4 mg ONETIME ONE Administration - Radiology Interpretation Free Text/Narrative:: [facility] Final Radiology Report Call: [phone] assistance Online chat: [email or web address] Monitoring Name: EDMUND BARNETT Age: 69Years M Date: 06/26/2020 SSN: -- : [id number] Study: CT ABDOMEN PELVIS W CONT Requesting Physician: RENETTA MEZA Images: [id number] Addl Studies: Provided Clinical History: Abdominal pain, diarrhea w/blood and mucus Contrast: With Contrast Medium: [id number] Contrast Amount: 100 mL Contrast Method: Intravenous (IV) Page 1 of 2 PROCEDURE INFORMATION: Exam: CT Abdomen And Pelvis With Contrast Exam date and time: 06/26/2020 4:14 PM Age: 69 years old Clinical indication: Other: HX diverticulosos, and HX abd/pelvic radiation tx, bladder CA; Additional info: Abdominal pain, diarrhea w/blood and mucus TECHNIQUE: Imaging protocol: Computed tomography of the abdomen and pelvis with contrast. Radiation optimization: All CT scans at this facility use at least one of these dose optimization techniques: automated exposure control; mA and/or kV adjustment per patient size (includes targeted exams where dose is matched to clinical indication); or iterative reconstruction. Contrast material: [id number]; Contrast volume: 100 ml; Contrast route: INTRAVENOUS (IV); COMPARISON: CT Abdomen Pelvis w wo Cont 08/27/2017 8:40 AM FINDINGS: Heart: Fatty deposition within left ventricular wall. This can be indicative of chronic subendocardial myocardial infarct. Liver: The liver is normal in architecture, without suspicious abnormality. Gallbladder and bile ducts: No calcified gallstones. No ductal dilation. Pancreas: The pancreatic parenchyma is normal in bulk and sharply marginated. Duct is not dilated. No calcifications, masses, or abnormal fluid collections. Spleen: Spleen is normal in size. No mass or fluid collection. Adrenal glands: There are no adrenal masses. Kidneys and ureters: Left ureteral stent in place. There is left hydroureteronephrosis. No urinary tract calculi. Essentially normal right kidney. Normal parenchymal bulk bilaterally. No solid masses. EDMUND BARNETT | Final Radiology Repo rt CONFIDENTIALITY STATEMENT This report is intended only for use by the referring physician, and only in accordance with law. If you received this in error, call [phone]. Page 2 of 2 Stomach and bowel: No significant abnormalities of the stomach. There are no dilated or thickened small bowel loops. Gas and stool are seen in the colon. The large intestine distal to the splenic flexure is predominantly decompressed and its wall may be edematous over this long segment, inclusive of the sigmoid colon.There are multiple colonic diverticula, concentrated primarily distally. There are multiple colonic diverticula, concentrated primarily distally. Appendix: The appendix is seen. It is normal. Intraperitoneal space: No pneumoperitoneum, ascites, mass or stranding of fat. Vasculature: There are atherosclerotic calcifications inclusive of the coronary arteries. There is atherosclerotic calcification of the aorto-iliac tree. There is no abdominal aortic aneurysm. 3.3 cm infrarenal abdominal aortic aneurysm. Lymph nodes: No enlarged lymph nodes. Urinary bladder: Eccentric bladder wall thickening consistent with history of bladder cancer. Reproductive: Prostate gland is normal in size. The seminal vesicles are unremarkable. Bones/joints: Age appropriate spondylosis. No acute fracture. No dislocation. Multifocal osteosclerotic nodules of the axial skeleton consistent with metastases from a bladder cancer. Soft tissues: There is a preponderance of fat in the left inguinal canal. IMPRESSION: 1. Suspect Colitis. Possible etiologies to the colitis include infectious, pseudomembranous, and inflammatory bowel disease. New finding. 2. Fatty deposition within left ventricular wall. This can be indicative of chronic subendocardial myocardial infarct. Present previously as well, not as much included in the field of view is on today's study. 3. 3.3 cm infrarenal abdominal aortic aneurysm. 4. Multifocal osteosclerotic nodules of the axial skeleton consistent with metastases from a bladder cancer. Not present previously. Thank you for allowing us to participate in the care of your patient. Dictated and Authenticated by: Oskar Aguila MD 06/26/2020 4:52 PM Central Time ([place] & [place]) Departure - Departure Time of Disposition: 17:58 Disposition: Home, Self-Care 01 Condition: Good Clinical Impression: Colitis - Discharge Information *PRESCRIPTION DRUG MONITORING PROGRAM REVIEWED*: Not Applicable *COPY OF PRESCRIPTION DRUG MONITORING REPORT IN PATIENT LEOPOLDO: Not Applicable Instructions: Colitis Forms: ED Department Discharge Additional Instructions: Rx: Lomotil Follow up in clinic with your primary doctor if not improved in 2 to 3 days. Return to ER if you develop fevers, severe abdominal pain, or any other concerning symptoms. Your CT scan results have been loaded to the [employer] system for your oncologist to review. Please notify your oncology clinic to look for the CT scan. Sepsis Event Note (ED) - Focused Exam Vital Signs: Vital Signs Temp Pulse Resp BP Pulse Ox 06/26/20 14:46 97.5 F 81 18 136/57 L 97 - My Orders Last 24 Hours: My Active Orders 06/26/20 14:50 UA RFX NU AND CULT IF INDIC [URIN] Stat Sodium Chloride 0.9% [Saline Flush] 10 ml FLUSH ASDIRECTED PRN Blood Culture x2 Reflex Set [OM.PC] Stat Peripheral IV Insertion Adult [OM.PC] Stat 06/26/20 14:51 Peripheral IV Care [RC] . DIRECTED 06/26/20 15:05 CULTURE BLOOD [BC] Stat 06/26/20 15:07 CULTURE BLOOD [BC] Stat 06/26/20 18:02 Atropine/Diphenoxylate [Lomotil 0.025-2.5 MG] 1 tab PO ONETIME ONE - Assessment/Plan Last 24 Hours: My Active Orders 06/26/20 14:50 UA RFX NU AND CULT IF INDIC [URIN] Stat Sodium Chloride 0.9% [Saline Flush] 10 ml FLUSH ASDIRECTED PRN Blood Culture x2 Reflex Set [OM.PC] Stat Peripheral IV Insertion Adult [OM.PC] Stat 06/26/20 14:51 Peripheral IV Care [RC] . DIRECTED 06/26/20 15:05 CULTURE BLOOD [BC] Stat 06/26/20 15:07 CULTURE BLOOD [BC] Stat 06/26/20 18:02 Atropine/Diphenoxylate [Lomotil 0.025-2.5 MG] 1 tab PO ONETIME ONE I have read and agree with the documentation that has been completed regarding this visit. By signing this record, I attest that the documentation was completed in my physical presence and is an accurate record of the encounter."
== END 2020-06-26 18:10 | disposition home or self-care (01) ==
LOC: DL.ED 14:24
DX: K52.9 Noninfective gastroenteritis and colitis, unspecified (principal); E78.00 Pure hypercholesterolemia, unspecified; I10 Essential (primary) hypertension; I25.2 Old myocardial infarction; M19.90 Unspecified osteoarthritis, unspecified site; Z79.82 Long term (current) use of aspirin; Z79.899 Other long term (current) drug therapy
CPT/HCPCS: 36415; 74177; 80053; 82150; 83605; 83690; 85025; 85610; 85730; 86140; 87040; 96374; 96375; 96376; 99283; 99284; A9270; J1170; J2405; J2930; J7030; Q9967

== ENCOUNTER 2021-07-03 13:48 | Emergency (ER) | payer MEDICARE, BC ==
[2021-07-03] MEDS ORDERED: Cephalexin 500 MG Cap PO ONE ×2 (13:49→18:00)
[2021-07-03] MEDS ORDERED: HYDROmorphone 0.5 MG/0.5 ML Syringe IVPUSH ONE (17:11)
[2021-07-03 17:25] LABS: ANION GAP 11.3 mEq/L (7-13)
[2021-07-03] MEDS ORDERED: Cephalexin 500 MG Cap ONE (18:07)
== END 2021-07-03 18:18 | disposition home or self-care (01) ==
LOC: DL.ED 13:48
DX: N39.0 Urinary tract infection, site not specified (principal); E78.00 Pure hypercholesterolemia, unspecified; I10 Essential (primary) hypertension; I25.2 Old myocardial infarction; Z72.0 Tobacco use; Z88.8 Allergy status to other drugs, medicaments and biological substances; Z79.82 Long term (current) use of aspirin; Z79.899 Other long term (current) drug therapy
CPT/HCPCS: 36415; 80053; 81001; 85025; 87086; 96374; 99283; 99284; A9270; J1170

== ENCOUNTER 2021-07-10 16:46 | Emergency (ER) | payer MEDICARE, BC ==
[2021-07-10] MEDS ORDERED: Magnesium Citrate Solution 296 ML Bottle PO ONE (16:47)
[2021-07-10] MEDS ORDERED: HYDROmorphone 0.5 MG/0.5 ML Syringe IVPUSH ONE (19:53)
[2021-07-10 19:55] LABS: ANION GAP 10.6 mEq/L (7-13); CHLORIDE,CL 102 mmol/L (98-107); SODIUM,NA 139 mmol/L (136-145)
[2021-07-10] MEDS ORDERED: Sodium Chloride 0.9% 1,000 ML IV ONE (20:18)
[2021-07-10] MEDS ORDERED: Iopamidol 612 MG/ML 100 ML Bottle IVPUSH ONE (20:18)
[2021-07-10] MEDS ORDERED: HYDROmorphone 1 MG/ML Syringe IVPUSH ONE (21:45)
[2021-07-10] MEDS ORDERED: Levofloxacin 500 MG Tab PO ONE (22:54)
[2021-07-10] MEDS ORDERED: Magnesium Citrate Solution 296 ML Bottle ONE (23:29)
== END 2021-07-11 00:09 | disposition home or self-care (01) ==
LOC: DL.ED 16:46
DX: N30.01 Acute cystitis with hematuria (principal); C61 Malignant neoplasm of prostate; E78.00 Pure hypercholesterolemia, unspecified; I10 Essential (primary) hypertension; I25.2 Old myocardial infarction; Z72.0 Tobacco use; Z88.8 Allergy status to other drugs, medicaments and biological substances; Z79.82 Long term (current) use of aspirin; Z79.899 Other long term (current) drug therapy
CPT/HCPCS: 36415; 74177; 80053; 81001; 82150; 83605; 83690; 83735; 85025; 87040; 87086; 96374; 96376; 99284; 99284-25; A9270-GY; J1170; J7030; Q9967

== ENCOUNTER 2021-07-27 14:59 | Emergency (ER) | payer MEDICARE, BC ==
[2021-07-27 17:42] LABS: ANION GAP 10.8 mEq/L (7-13); CHLORIDE,CL 102 mmol/L (98-107); SODIUM,NA 142 mmol/L (136-145)
[2021-07-27] MEDS ORDERED: Acetaminophen/HYDROcodone 325-10 MG Tab PO ONE (17:43)
[2021-07-27] MEDS ORDERED: cefTRIAXone 2 GM in Sodium Chloride 0.9% 100 ML IV ONE (17:50)
[2021-07-27] MEDS ORDERED: Potassium Chloride 20 MEQ in Premix Bag 1 BAG IV ONE (18:23)
[2021-07-27] MEDS ORDERED: Potassium Chloride 10 MEQ Tab.ER PO ONE (18:23)
== END 2021-07-27 22:21 | disposition home or self-care (01) ==
LOC: DL.ED 14:59
DX: N39.0 Urinary tract infection, site not specified (principal); K62.89 Other specified diseases of anus and rectum; E87.6 Hypokalemia; E78.00 Pure hypercholesterolemia, unspecified; I10 Essential (primary) hypertension; I25.2 Old myocardial infarction; Z88.8 Allergy status to other drugs, medicaments and biological substances; Z79.82 Long term (current) use of aspirin; Z79.899 Other long term (current) drug therapy
CPT/HCPCS: 36415; 80048; 81001; 85025; 87086; 96365; 96366; 96367; 96368; 99284; A9270; J0696; J1580; J3480; J3490

== ENCOUNTER 2021-08-10 15:39 | Emergency (ER) | payer MEDICARE, BC ==
[2021-08-10 16:30] LABS: ANION GAP 12.4 mEq/L (7-13)
[2021-08-10] MEDS ORDERED: Iopamidol 612 MG/ML 100 ML Bottle IVPUSH ONE (17:02)
[2021-08-10] MEDS ORDERED: cefTRIAXone 1 GM in Sodium Chloride 0.9% 50 ML IV ONE (18:19)
== END 2021-08-10 19:04 | disposition home or self-care (01) ==
LOC: DL.ED 15:39
DX: K52.9 Noninfective gastroenteritis and colitis, unspecified (principal); N39.0 Urinary tract infection, site not specified; E78.00 Pure hypercholesterolemia, unspecified; I25.2 Old myocardial infarction; I10 Essential (primary) hypertension; Z87.891 Personal history of nicotine dependence; Z79.899 Other long term (current) drug therapy; Z79.82 Long term (current) use of aspirin; Z88.8 Allergy status to other drugs, medicaments and biological substances
CPT/HCPCS: 36415; 74177; 80053; 81001; 82272; 83605; 85025; 85610; 87040; 87086; 96365; 99284; J0696; Q9967

== ENCOUNTER 2021-08-21 17:31 | Emergency (ER) | payer MEDICARE, BC ==
[2021-08-21] MEDS ORDERED: Sodium Chloride 0.9% 1,000 ML IV ONE (18:32)
[2021-08-21] MEDS ORDERED: Sodium Chloride 0.9% 10 ML Syringe FLUSH PRN (18:32)
[2021-08-21] MEDS ORDERED: Ondansetron 4 MG/2 ML SDV IVPUSH ONE (18:33)
[2021-08-21] MEDS ORDERED: HYDROmorphone 0.5 MG/0.5 ML Syringe IVPUSH ONE (18:34)
[2021-08-21 19:19] LABS: ANION GAP 10.3 mEq/L (7-13); CHLORIDE,CL 103 mmol/L (98-107); SODIUM,NA 140 mmol/L (136-145)
[2021-08-21] MEDS ORDERED: Phenazopyridine 95 MG Tab PO ONE (20:41)
[2021-08-21] MEDS ORDERED: Ciprofloxacin 500 MG Tab PO ONE (20:41)
== END 2021-08-21 21:05 | disposition home or self-care (01) ==
LOC: DL.ED 17:31
DX: N39.0 Urinary tract infection, site not specified (principal); I10 Essential (primary) hypertension; I25.2 Old myocardial infarction; Z79.899 Other long term (current) drug therapy; Z79.82 Long term (current) use of aspirin
CPT/HCPCS: 36415; 80053; 81001; 83605; 85025; 86140; 87040; 87086; 96374; 96375; 99283; A9270; J1170; J2405; J3490; J7030

== ENCOUNTER 2021-08-23 21:07 | Inpatient (IN) | payer MEDICARE, BC ==
[2021-08-23] MEDS ORDERED: HYDROmorphone 0.5 MG/0.5 ML Syringe IVPUSH ONE ×2 (21:27→22:23)
[2021-08-23] MEDS ORDERED: Lidocaine 2% Jelly 10 ML Urojet MUCMEM ONE (21:34)
[2021-08-23] MEDS: Sodium Chloride 0.9% 10 ML Syringe FLUSH PRN (22:30)
[2021-08-23] MEDS ORDERED: Levofloxacin/Dextrose 5%-Water 750 MG in Premix Bag 1 BAG IV ONE (22:49)
[2021-08-23] MEDS ORDERED: Methylnaltrexone 12 MG/0.6 ML SDV SUBCUT ONE (23:04)
[2021-08-23 23:16] LABS: ANION GAP 11.6 mEq/L (7-13); CHLORIDE,CL 103 mmol/L (98-107); SODIUM,NA 142 mmol/L (136-145)
[2021-08-23 23:18] LABS: ESTIMATED GFR 56
[2021-08-24] MEDS ORDERED: Docusate Sodium 100 MG Cap PO PRN (00:28)
[2021-08-24] MEDS ORDERED: Magnesium Hydroxide 400 MG/5 ML Susp 30 ML Cup PO PRN (00:28)
[2021-08-24] MEDS ORDERED: Temazepam 15 MG Cap PO PRN (00:28)
[2021-08-24] MEDS ORDERED: Polyethylene Glycol 3350 Powder 17 GM Packet PO PRN ×2 (00:28→07:16)
[2021-08-24] MEDS: Ondansetron 4 MG/2 ML SDV IVPUSH PRN ×2 (01:03→21:32)
[2021-08-24] MEDS: HYDROmorphone 0.5 MG/0.5 ML Syringe IVPUSH PRN ×4 (01:03→07:40)
[2021-08-24] MEDS: Sodium Chloride 0.9% 1,000 ML IV SCH ×2 (01:05→08:54)
[2021-08-24] MEDS ORDERED: Furosemide 20 MG Tab PO PRN (01:51)
[2021-08-24] MEDS ORDERED: Prochlorperazine 5 MG Tab PO PRN (01:51)
[2021-08-24] MEDS ORDERED: NALOXEGOL OXALATE 12.5 MG PO PRN (01:51)
[2021-08-24] MEDS ORDERED: [UNRECOGNIZED DRUG - OTHER] PO PRN (01:51)
[2021-08-24] MEDS ORDERED: Nitroglycerin 0.4 MG Tab.SL SL PRN (01:51)
[2021-08-24] MEDS ORDERED: HYDROmorphone 0.5 MG/0.5 ML Syringe IVPUSH ONE (02:09)
[2021-08-24] MEDS: Doxycycline Monohydrate 100 MG Cap PO SCH ×3 (02:10→21:34)
[2021-08-24] MEDS: Metoprolol Succinate 25 MG Tab.ER PO SCH ×2 (02:10→10:12)
[2021-08-24] MEDS: Lisinopril 20 MG Tab PO SCH ×2 (02:10→10:11)
[2021-08-24] MEDS: Aspirin 81 MG Tab.EC PO SCH ×2 (02:10→10:11)
[2021-08-24] MEDS: fentaNYL 50 MCG/HR Transdermal Patch TRDERM SCH (02:19)
[2021-08-24] MEDS: fentaNYL 25 MCG/HR Transdermal Patch TRDERM SCH (02:19)
[2021-08-24] MEDS: ABIRATERONE ACETATE 250 MG PO SCH ×2 (02:52→21:32)
[2021-08-24] MEDS: Sodium Chloride 0.9% 10 ML Syringe FLUSH PRN (03:50)
[2021-08-24] MEDS: Levothyroxine 25 MCG Tab PO SCH (05:31)
[2021-08-24 06:53] LABS: ANION GAP 11.9 mEq/L (7-13); CHLORIDE,CL 106 mmol/L (98-107); SODIUM,NA 143 mmol/L (136-145)
[2021-08-24] MEDS ORDERED: Naloxone 2 MG/2 ML Syringe IVPUSH PRN ×2 (07:07→09:31)
[2021-08-24] MEDS ORDERED: Benzocaine/Docusate Sodium 20-283 MG/5 ML Enema RECTAL ONE (07:09)
[2021-08-24] MEDS ORDERED: fentaNYL Citrate/PF 1,500 MCG/30 ML PCA Vial IV SCH ×2 (07:15→10:00)
[2021-08-24] MEDS ORDERED: Ondansetron 4 MG Tab.DIS PO PRN (07:16)
[2021-08-24] MEDS ORDERED: Non-Formulary Medication 1 Each (Fentanyl [Fentanyl] 1 EACH Patch.Td72) TD SCH (07:30)
[2021-08-24 07:52] LABS: ESTIMATED GFR > 60
[2021-08-24] MEDS ORDERED: Check Patch TRDERM SCH (09:00)
[2021-08-24] MEDS: cefTRIAXone 1 GM in Sodium Chloride 0.9% 50 ML IV SCH ×2 (09:11→21:31)
[2021-08-24] MEDS ORDERED: fentaNYL Citrate/PF 1,500 MCG/30 ML PCA Vial ONE (09:48)
[2021-08-24] MEDS: Calcium Carbonate/Vitamin D3 1250 MG-5 MCG Tab PO SCH ×2 (10:10→21:33)
[2021-08-24] MEDS: Lutein/Minerals/Vit A,C & E Tab PO SCH (10:11)
[2021-08-24] MEDS: Potassium Chloride 10 MEQ Tab.ER PO SCH (10:11)
[2021-08-24] MEDS: Oxybutynin 5 MG Tab PO SCH ×2 (10:11→21:33)
[2021-08-24] MEDS ORDERED: Bisacodyl 10 MG Supp RECTAL ONE (15:00)
[2021-08-24] MEDS: Ibuprofen 200 MG Tab PO PRN (15:43)
[2021-08-24] MEDS ORDERED: Methylnaltrexone 12 MG/0.6 ML SDV SUBCUT ONE (16:00)
[2021-08-24] MEDS ORDERED: Tamsulosin 0.4 MG Cap.ER PO SCH (21:00)
[2021-08-24] MEDS: HYDROmorphone 1 MG/ML Syringe IVPUSH PRN (21:32)
[2021-08-24] MEDS: Tamsulosin 0.4 MG Cap.ER PO SCH (21:33)
[2021-08-24] MEDS: Pravastatin 20 MG Tab PO SCH (21:33)
[2021-08-24] MEDS: predniSONE 10 MG Tab PO SCH (21:34)
[2021-08-24] MEDS ORDERED: Bisacodyl 10 MG Supp RECTAL PRN (23:00)
[2021-08-25] MEDS: Levothyroxine 25 MCG Tab PO SCH (05:18)
[2021-08-25] MEDS ORDERED: Iopamidol 612 MG/ML 100 ML Bottle IVPUSH ONE (07:41)
[2021-08-25] MEDS: Tamsulosin 0.4 MG Cap.ER PO SCH ×2 (08:45→18:08)
[2021-08-25] MEDS: Doxycycline Monohydrate 100 MG Cap PO SCH ×2 (08:45→20:24)
[2021-08-25] MEDS: Calcium Carbonate/Vitamin D3 1250 MG-5 MCG Tab PO SCH ×2 (08:46→20:24)
[2021-08-25] MEDS: Potassium Chloride 10 MEQ Tab.ER PO SCH (08:46)
[2021-08-25] MEDS: Aspirin 81 MG Tab.EC PO SCH (08:46)
[2021-08-25] MEDS: Lutein/Minerals/Vit A,C & E Tab PO SCH (08:46)
[2021-08-25] MEDS: Metoprolol Succinate 25 MG Tab.ER PO SCH (08:47)
[2021-08-25] MEDS: Oxybutynin 5 MG Tab PO SCH ×2 (08:47→20:24)
[2021-08-25] MEDS: Lisinopril 20 MG Tab PO SCH (08:47)
[2021-08-25 09:32] LABS: ANION GAP 13.2 mEq/L (7-13); CHLORIDE,CL 106 mmol/L (98-107); ESTIMATED GFR > 60; SODIUM,NA 139 mmol/L (136-145)
[2021-08-25] MEDS: cefTRIAXone 1 GM in Sodium Chloride 0.9% 50 ML IV SCH ×2 (09:44→20:26)
[2021-08-25] MEDS: CHECK FENTANYL TRDERM SCH (09:49)
[2021-08-25] MEDS: FISH OIL 1200 MG PO SCH (10:42)
[2021-08-25 10:46] LABS: C.TRACHOMATIS BY TMA Negative (Negative); N.GONORRHOEAE BY TMA Negative (Negative)
[2021-08-25] MEDS: HYDROmorphone 1 MG/ML Syringe IVPUSH PRN ×5 (11:32→23:09)
[2021-08-25] MEDS: Acetaminophen 325 MG Tab PO PRN (16:54)
[2021-08-25] MEDS: Pravastatin 20 MG Tab PO SCH (20:24)
[2021-08-25] MEDS: predniSONE 10 MG Tab PO SCH (20:24)
[2021-08-25] MEDS: ABIRATERONE ACETATE 250 MG PO SCH (21:40)
[2021-08-26] MEDS: HYDROmorphone 1 MG/ML Syringe IVPUSH PRN ×5 (02:15→19:35)
[2021-08-26] MEDS: Sodium Chloride 0.9% 10 ML Syringe FLUSH PRN (02:16)
[2021-08-26] MEDS: Levothyroxine 25 MCG Tab PO SCH (05:42)
[2021-08-26] MEDS: Oxybutynin 5 MG Tab PO SCH ×2 (08:18→21:16)
[2021-08-26] MEDS: Doxycycline Monohydrate 100 MG Cap PO SCH ×2 (08:19→21:17)
[2021-08-26] MEDS: Lutein/Minerals/Vit A,C & E Tab PO SCH (08:19)
[2021-08-26] MEDS: Metoprolol Succinate 25 MG Tab.ER PO SCH (08:19)
[2021-08-26] MEDS: Tamsulosin 0.4 MG Cap.ER PO SCH ×2 (08:20→18:28)
[2021-08-26] MEDS: Potassium Chloride 10 MEQ Tab.ER PO SCH (08:20)
[2021-08-26] MEDS: cefTRIAXone 1 GM in Sodium Chloride 0.9% 50 ML IV SCH ×2 (08:20→21:09)
[2021-08-26] MEDS: Aspirin 81 MG Tab.EC PO SCH (08:20)
[2021-08-26] MEDS: Calcium Carbonate/Vitamin D3 1250 MG-5 MCG Tab PO SCH ×2 (08:20→21:16)
[2021-08-26] MEDS: Lisinopril 20 MG Tab PO SCH (08:20)
[2021-08-26] MEDS: CHECK FENTANYL TRDERM SCH (08:21)
[2021-08-26 09:47] LABS: ANION GAP 8.7 mEq/L (7-13); CHLORIDE,CL 103 mmol/L (98-107); SODIUM,NA 136 mmol/L (136-145)
[2021-08-26 09:53] LABS: ESTIMATED GFR > 60
[2021-08-26] MEDS: FISH OIL 1200 MG PO SCH (10:03)
[2021-08-26] MEDS ORDERED: Hydrocortisone 2.5% Crm 30 GM Tube TOP ONE (11:46)
[2021-08-26] MEDS: HYDROmorphone 2 MG Tab PO PRN ×2 (12:18→16:53)
[2021-08-26] MEDS: Ibuprofen 200 MG Tab PO PRN (14:59)
[2021-08-26] MEDS: Acetaminophen 325 MG Tab PO PRN (18:29)
[2021-08-26] MEDS ORDERED: LORazepam 2 MG/ML SDV IVPUSH PRN (19:21)
[2021-08-26] MEDS: predniSONE 10 MG Tab PO SCH (21:16)
[2021-08-26] MEDS: Pravastatin 20 MG Tab PO SCH (21:16)
[2021-08-26] MEDS: ABIRATERONE ACETATE 250 MG PO SCH (21:19)
[2021-08-27] MEDS: Acetaminophen 325 MG Tab PO PRN ×2 (00:26→15:05)
[2021-08-27] MEDS: fentaNYL 50 MCG/HR Transdermal Patch TRDERM SCH (02:53)
[2021-08-27] MEDS: fentaNYL 25 MCG/HR Transdermal Patch TRDERM SCH (02:53)
[2021-08-27] MEDS: HYDROmorphone 1 MG/ML Syringe IVPUSH PRN ×3 (02:54→15:05)
[2021-08-27] MEDS: Levothyroxine 25 MCG Tab PO SCH (05:44)
[2021-08-27] MEDS: cefTRIAXone 1 GM in Sodium Chloride 0.9% 50 ML IV SCH ×2 (09:17→20:55)
[2021-08-27] MEDS: Calcium Carbonate/Vitamin D3 1250 MG-5 MCG Tab PO SCH ×2 (09:18→20:54)
[2021-08-27] MEDS: Potassium Chloride 10 MEQ Tab.ER PO SCH (09:18)
[2021-08-27] MEDS: Lutein/Minerals/Vit A,C & E Tab PO SCH (09:18)
[2021-08-27] MEDS: Oxybutynin 5 MG Tab PO SCH ×2 (09:18→20:54)
[2021-08-27] MEDS: Tamsulosin 0.4 MG Cap.ER PO SCH ×2 (09:19→18:28)
[2021-08-27] MEDS: Doxycycline Monohydrate 100 MG Cap PO SCH ×2 (09:19→20:54)
[2021-08-27] MEDS: Metoprolol Succinate 25 MG Tab.ER PO SCH (09:19)
[2021-08-27] MEDS: Lisinopril 20 MG Tab PO SCH (09:20)
[2021-08-27] MEDS: Aspirin 81 MG Tab.EC PO SCH (09:20)
[2021-08-27] MEDS: FISH OIL 1200 MG PO SCH (09:20)
[2021-08-27] MEDS: CHECK FENTANYL TRDERM SCH (09:21)
[2021-08-27] MEDS ORDERED: fentaNYL 50 MCG/HR Transdermal Patch TRDERM ONE (09:45)
[2021-08-27] MEDS ORDERED: Ketorolac 30 MG/ML SDV IVPUSH PRN ×2 (16:11→16:41)
[2021-08-27] MEDS ORDERED: Ibuprofen 600 MG Tab PO SCH (17:30)
[2021-08-27] MEDS ORDERED: LORazepam 1 MG Tab PO PRN (20:40)
[2021-08-27] MEDS: Pravastatin 20 MG Tab PO SCH (20:54)
[2021-08-27] MEDS: predniSONE 10 MG Tab PO SCH (20:55)
[2021-08-27] MEDS: ABIRATERONE ACETATE 250 MG PO SCH (20:55)
[2021-08-27] MEDS: Ibuprofen 600 MG Tab PO SCH (20:56)
[2021-08-27] MEDS ORDERED: Pantoprazole 40 MG Tab.CR PO SCH (21:00)
[2021-08-27] MEDS ORDERED: Pantoprazole 40 MG Vial IVPUSH SCH (21:00)
[2021-08-28] MEDS: Ibuprofen 600 MG Tab PO SCH ×3 (03:00→11:13)
[2021-08-28] MEDS: Levothyroxine 25 MCG Tab PO SCH (05:41)
[2021-08-28 06:58] LABS: ANION GAP 10.1 mEq/L (7-13); CHLORIDE,CL 106 mmol/L (98-107); SODIUM,NA 141 mmol/L (136-145)
[2021-08-28 07:19] LABS: ESTIMATED GFR > 60
[2021-08-28] MEDS: Tamsulosin 0.4 MG Cap.ER PO SCH (10:46)
[2021-08-28] MEDS: Aspirin 81 MG Tab.EC PO SCH (10:47)
[2021-08-28] MEDS: Doxycycline Monohydrate 100 MG Cap PO SCH (10:47)
[2021-08-28] MEDS: Lutein/Minerals/Vit A,C & E Tab PO SCH (10:47)
[2021-08-28] MEDS: Lisinopril 20 MG Tab PO SCH (10:47)
[2021-08-28] MEDS: Metoprolol Succinate 25 MG Tab.ER PO SCH (10:49)
[2021-08-28] MEDS: Oxybutynin 5 MG Tab PO SCH (10:49)
[2021-08-28] MEDS: Calcium Carbonate/Vitamin D3 1250 MG-5 MCG Tab PO SCH (10:49)
[2021-08-28] MEDS: FISH OIL 1200 MG PO SCH (10:51)
[2021-08-28] MEDS: CHECK FENTANYL TRDERM SCH (10:55)
[2021-08-28] MEDS: cefTRIAXone 1 GM in Sodium Chloride 0.9% 50 ML IV SCH (10:56)
[2021-08-28] MEDS: Potassium Chloride 10 MEQ Tab.ER PO SCH (11:14)
[2021-08-30] MEDS ORDERED: fentaNYL 50 MCG/HR Transdermal Patch TRDERM SCH (02:00)
== END 2021-08-28 13:50 | disposition home or self-care (01) | DRG 689 ==
LOC: DL.ED 21:07 → DL.MS 23:29
PROVIDERS: ADMIT Internal Medicine; ATTEND Internal Medicine
DX: N39.0 Urinary tract infection, site not specified (principal); U07.1 COVID-19; C79.51 Secondary malignant neoplasm of bone; C79.11 Secondary malignant neoplasm of bladder; C61 Malignant neoplasm of prostate; M19.90 Unspecified osteoarthritis, unspecified site; Z86.16 Personal history of COVID-19; Z87.440 Personal history of urinary (tract) infections; F17.210 Nicotine dependence, cigarettes, uncomplicated; Z85.46 Personal history of malignant neoplasm of prostate; I25.10 Atherosclerotic heart disease of native coronary artery without angina pectoris; Z66 Do not resuscitate; Z92.21 Personal history of antineoplastic chemotherapy; K59.00 Constipation, unspecified; E03.9 Hypothyroidism, unspecified; E78.5 Hyperlipidemia, unspecified; Z79.890 Hormone replacement therapy; E78.00 Pure hypercholesterolemia, unspecified; I10 Essential (primary) hypertension; F17.200 Nicotine dependence, unspecified, uncomplicated; Z79.82 Long term (current) use of aspirin; Z79.899 Other long term (current) drug therapy; I25.2 Old myocardial infarction; Z93.6 Other artificial openings of urinary tract status
CPT/HCPCS: 36415; 51702 ×2; 74018; 80053; 81001; 83605; 83735; 83880; 85025; 86140; 87040 ×2; 87086; 96374; 96376; 99285; J1170 ×2; J3490; U0002; 74177; 80048; 83690; 87491; 87591; 99222; 99232; 99239; 99284; A9270-GY; J0696; J1885; J1956; J2060; J2212-GY; J2405; J3010; J7030; J7512; Q9967

== ENCOUNTER 2021-09-06 19:30 | Emergency (ER) | payer MEDICARE, BC ==
[2021-09-06] MEDS ORDERED: Iopamidol 612 MG/ML 100 ML Bottle IVPUSH ONE (20:51)
[2021-09-06 21:02] LABS: ANION GAP 8.6 mEq/L (7-13)
[2021-09-06] MEDS ORDERED: cefTRIAXone 1 GM in Sodium Chloride 0.9% 50 ML IV ONE (22:51)
== END 2021-09-07 00:05 | disposition home or self-care (01) ==
LOC: DL.ED 19:30
DX: C61 Malignant neoplasm of prostate (principal); K61.1 Rectal abscess; E78.00 Pure hypercholesterolemia, unspecified; I10 Essential (primary) hypertension; I25.2 Old myocardial infarction; F17.210 Nicotine dependence, cigarettes, uncomplicated; Z79.82 Long term (current) use of aspirin; Z79.899 Other long term (current) drug therapy; Z86.16 Personal history of COVID-19
CPT/HCPCS: 36415; 72193; 80053; 83605; 83735; 85025; 96365; 99284; J0696; Q9967; 99285

== ENCOUNTER 2021-09-23 13:38 | Emergency (ER) | payer MEDICARE, BC ==
[2021-09-23] MEDS ORDERED: Phenazopyridine 95 MG Tab PO ONE (13:39)
[2021-09-23] MEDS ORDERED: Phenazopyridine 95 MG Tab ONE (17:28)
== END 2021-09-23 17:35 | disposition home or self-care (01) ==
LOC: DL.ED 13:38
DX: C61 Malignant neoplasm of prostate (principal); R31.0 Gross hematuria; I10 Essential (primary) hypertension; E78.00 Pure hypercholesterolemia, unspecified; I25.2 Old myocardial infarction; Z87.891 Personal history of nicotine dependence; Z79.82 Long term (current) use of aspirin; Z79.899 Other long term (current) drug therapy
CPT/HCPCS: 81001; 81003; 87086; 99283; A9270; 99285

== ENCOUNTER 2021-10-15 12:58 | Emergency (ER) | payer MEDICARE, BC ==
[2021-10-15] MEDS ORDERED: Acetaminophen/HYDROcodone 325-10 MG Tab PO ONE (15:02)
[2021-10-15 15:32] LABS: ANION GAP 8.9 mEq/L (7-13)
== END 2021-10-15 17:11 | disposition home or self-care (01) ==
LOC: DL.ED 12:58
DX: R60.0 Localized edema (principal); E44.0 Moderate protein-calorie malnutrition; I10 Essential (primary) hypertension; I25.2 Old myocardial infarction; Z79.899 Other long term (current) drug therapy; Z79.82 Long term (current) use of aspirin; Z86.16 Personal history of COVID-19
CPT/HCPCS: 36415; 80053; 81001; 83880; 85025; 87086; 93970; 99284; 99285; A9270

== ENCOUNTER 2021-10-16 10:43 | Emergency (ER) | payer MEDICARE, BC ==
[2021-10-16] MEDS ORDERED: Sodium Chloride 0.9% 10 ML Syringe FLUSH PRN (11:14)
[2021-10-16] MEDS ORDERED: Morphine 4 MG/ML Syringe IVPUSH ONE ×2 (11:22→12:58)
[2021-10-16] MEDS ORDERED: Ondansetron 4 MG/2 ML SDV IV ONE (11:23)
[2021-10-16 11:40] LABS: ANION GAP 9.3 mEq/L (7-13); CHLORIDE,CL 103 mmol/L (98-107); ESTIMATED GFR 65 mL/min (>=60); SODIUM,NA 137 mmol/L (136-145)
== END 2021-10-16 13:30 | disposition home or self-care (01) ==
LOC: DL.ED 10:43
DX: R07.89 Other chest pain (principal); I10 Essential (primary) hypertension; I25.2 Old myocardial infarction; Z79.899 Other long term (current) drug therapy; Z79.82 Long term (current) use of aspirin; Z86.16 Personal history of COVID-19
CPT/HCPCS: 36415; 71045; 80053; 82150; 83880; 84484; 85025; 93005; 93010; 96374; 96375; 96376; 99284; 99285; J2270; J2405

== ENCOUNTER 2021-11-05 09:29 | Observation (INO) | payer MEDICARE, BC ==
[2021-11-05] MEDS ORDERED: Sodium Chloride 0.9% 10 ML Syringe FLUSH PRN (09:59)
[2021-11-05] MEDS ORDERED: Furosemide 100 MG/10 ML SDV IVPUSH ONE (10:17)
[2021-11-05 10:45] LABS: CORONAVIRUS COVID-19 NAA NEGATIVE (NEGATIVE)
[2021-11-05] MEDS ORDERED: Potassium Chloride 10 MEQ Tab.ER PO ONE (11:23)
[2021-11-05] MEDS ORDERED: Acetaminophen/HYDROcodone 325-10 MG Tab PO ONE (12:24)
[2021-11-05] MEDS ORDERED: Acetaminophen/HYDROcodone 325-5 MG Tab PO PRN (14:06)
[2021-11-05] MEDS ORDERED: Acetaminophen 325 MG Tab PO PRN (14:06)
[2021-11-05] MEDS ORDERED: HYDROmorphone 0.5 MG/0.5 ML Syringe IVPUSH PRN (14:09)
[2021-11-05] MEDS ORDERED: Ondansetron 4 MG/2 ML SDV IVPUSH PRN (14:09)
[2021-11-05] MEDS ORDERED: Polyethylene Glycol 3350 Powder 17 GM Packet PO PRN (14:09)
[2021-11-05] MEDS ORDERED: Magnesium Hydroxide 400 MG/5 ML Susp 30 ML Cup PO PRN ×2 (14:09→14:18)
[2021-11-05] MEDS ORDERED: Zolpidem 5 MG Tab PO PRN (14:09)
[2021-11-05] MEDS ORDERED: Albuterol/Ipratropium 3.0-0.5 MG/3 ML Neb Soln NEB PRN (14:09)
[2021-11-05] MEDS ORDERED: Nitroglycerin 0.4 MG Tab.SL SL PRN (14:18)
[2021-11-05] MEDS ORDERED: Phenazopyridine 95 MG Tab PO PRN (14:18)
[2021-11-05] MEDS ORDERED: Albumin Human 50 GM in Premix Bag 1 BAG IV ONE (17:08)
[2021-11-05] MEDS ORDERED: Ondansetron 4 MG Tab.DIS PO PRN (17:49)
[2021-11-05] MEDS: Acetaminophen/HYDROcodone 325-10 MG Tab PO PRN (19:42)
[2021-11-05] MEDS: Pravastatin 20 MG Tab PO SCH (20:24)
[2021-11-05] MEDS: Tamsulosin 0.4 MG Cap.ER PO SCH (20:24)
[2021-11-05] MEDS: Saccharomyces Boulardii (Probiotic) 250 MG Cap PO SCH (20:24)
[2021-11-05] MEDS: predniSONE 10 MG Tab PO SCH (20:24)
[2021-11-05] MEDS: Potassium Chloride 10 MEQ Tab.ER PO SCH (20:24)
[2021-11-05] MEDS: Oxybutynin 5 MG Tab PO SCH (20:24)
[2021-11-05] MEDS: Furosemide 100 MG in Sodium Chloride 0.9% 90 ML IV SCH (20:42)
[2021-11-05] MEDS ORDERED: fentaNYL 25 MCG/HR Transdermal Patch TRDERM SCH (21:00)
[2021-11-05] MEDS ORDERED: fentaNYL 50 MCG/HR Transdermal Patch TRDERM SCH (21:00)
[2021-11-05] MEDS: Heparin Sodium 5,000 Units/ML Vial SUBCUT SCH (23:28)
[2021-11-06] MEDS: Acetaminophen/HYDROcodone 325-10 MG Tab PO PRN ×5 (01:29→20:42)
[2021-11-06] MEDS: Levothyroxine 25 MCG Tab PO SCH (05:51)
[2021-11-06 07:11] LABS: ANION GAP 2.4 mEq/L (7-13)
[2021-11-06] MEDS ORDERED: HYDROmorphone 1 MG/ML Syringe IVPUSH PRN (07:32)
[2021-11-06] MEDS: Metoprolol Succinate 25 MG Tab.ER PO SCH (08:05)
[2021-11-06] MEDS: Cholecalciferol (Vitamin D3) 25 MCG Tab PO SCH (08:05)
[2021-11-06] MEDS: Saccharomyces Boulardii (Probiotic) 250 MG Cap PO SCH ×2 (08:05→20:44)
[2021-11-06] MEDS: Cephalexin 250 MG Cap PO SCH (08:05)
[2021-11-06] MEDS: Oxybutynin 5 MG Tab PO SCH ×2 (08:05→20:43)
[2021-11-06] MEDS: Potassium Chloride 10 MEQ Tab.ER PO SCH ×2 (08:06→20:41)
[2021-11-06] MEDS: Calcium Carbonate/Vitamin D3 1250 MG-5 MCG Tab PO SCH (08:06)
[2021-11-06] MEDS: Tamsulosin 0.4 MG Cap.ER PO SCH ×2 (08:06→20:42)
[2021-11-06] MEDS: Heparin Sodium 5,000 Units/ML Vial SUBCUT SCH ×2 (08:06→20:45)
[2021-11-06] MEDS: FLUoxetine 10 MG Cap PO SCH (08:06)
[2021-11-06] MEDS: [UNRECOGNIZED DRUG - REMARK] TRDERM SCH ×2 (08:15→20:30)
[2021-11-06] MEDS: [UNRECOGNIZED DRUG - REMARK] TRDERM SCH ×2 (08:15→20:30)
[2021-11-06] MEDS ORDERED: fentaNYL 50 MCG/HR Transdermal Patch TRDERM SCH (09:00)
[2021-11-06] MEDS ORDERED: fentaNYL 25 MCG/HR Transdermal Patch TRDERM SCH (09:00)
[2021-11-06] MEDS: LORazepam 1 MG Tab PO PRN (14:00)
[2021-11-06] MEDS: predniSONE 10 MG Tab PO SCH (20:43)
[2021-11-06] MEDS: Pravastatin 20 MG Tab PO SCH (20:43)
[2021-11-06] MEDS ORDERED: ABIRATERONE ACETATE 250 MG PO SCH ×2 (21:00→22:30)
[2021-11-07] MEDS: Acetaminophen/HYDROcodone 325-10 MG Tab PO PRN ×2 (03:49→09:10)
[2021-11-07] MEDS: Levothyroxine 25 MCG Tab PO SCH (05:57)
[2021-11-07] MEDS: Furosemide 100 MG in Sodium Chloride 0.9% 90 ML IV SCH (06:23)
[2021-11-07 07:46] LABS: ANION GAP 7.9 mEq/L (7-13)
[2021-11-07] MEDS: Potassium Chloride 10 MEQ Tab.ER PO SCH (09:10)
[2021-11-07] MEDS: FLUoxetine 10 MG Cap PO SCH (09:10)
[2021-11-07] MEDS: Cephalexin 250 MG Cap PO SCH (09:10)
[2021-11-07] MEDS: Saccharomyces Boulardii (Probiotic) 250 MG Cap PO SCH (09:12)
[2021-11-07] MEDS: Oxybutynin 5 MG Tab PO SCH (09:12)
[2021-11-07] MEDS: Tamsulosin 0.4 MG Cap.ER PO SCH (09:12)
[2021-11-07] MEDS: Metoprolol Succinate 25 MG Tab.ER PO SCH (09:12)
[2021-11-07] MEDS: Calcium Carbonate/Vitamin D3 1250 MG-5 MCG Tab PO SCH (09:13)
[2021-11-07] MEDS: Cholecalciferol (Vitamin D3) 25 MCG Tab PO SCH (09:13)
[2021-11-07] MEDS: Heparin Sodium 5,000 Units/ML Vial SUBCUT SCH (09:13)
[2021-11-07] MEDS: LORazepam 1 MG Tab PO PRN (11:04)
== END 2021-11-07 18:10 | disposition home or self-care (01) ==
LOC: DL.ED 09:29 → DL.MS 12:55 → DL.ED 13:38
PROVIDERS: ADMIT Internal Medicine; ATTEND Internal Medicine
DX: E87.6 Hypokalemia (principal); H54.7 Unspecified visual loss; I10 Essential (primary) hypertension; I25.10 Atherosclerotic heart disease of native coronary artery without angina pectoris; I82.409 Acute embolism and thrombosis of unspecified deep veins of unspecified lower extremity; I25.2 Old myocardial infarction; F17.210 Nicotine dependence, cigarettes, uncomplicated; F32.A Depression, unspecified; F41.9 Anxiety disorder, unspecified; M19.90 Unspecified osteoarthritis, unspecified site; Z79.83 Long term (current) use of bisphosphonates; Z79.890 Hormone replacement therapy; Z79.82 Long term (current) use of aspirin; Z79.899 Other long term (current) drug therapy; Z79.51 Long term (current) use of inhaled steroids; Z86.16 Personal history of COVID-19; Z98.890 Other specified postprocedural states; Z20.822 Contact with and (suspected) exposure to COVID-19
CPT/HCPCS: 0240U; 36415; 71045; 80048; 80053; 81003; 82306; 82947; 83605; 83735; 83880; 84439; 84443; 84484; 85025; 93005; 93970; 96374; 97161; 97165; 99285; A9270; J1170; J1644; J1940; J3490; J7512; P9047

== ENCOUNTER 2021-11-23 16:24 | Emergency (ER) | payer MEDICARE, BC | END 2021-11-23 19:07 | disposition left against medical advice (07) | LOC: DL.ED 16:24 | DX: Z53.21 Procedure and treatment not carried out due to patient leaving prior to being seen by health care provider (principal) ==